=== PATIENT | female | born 1990 | race Caucasian/White ===

== ENCOUNTER 2017-11-09 03:28 | Inpatient (IN) ==
--- OUTSIDE RECORDS SUMMARY | 2017-11-09 06:13 | External Medical Summary | Continuity of Care Document ---
:1990 Author Organization [facility] [employer] [facility] Address [address] [place], [place] [id number] Phone Care Team Providers Name Role Phone Tarun Cotto MD Unavailable Unavailable Allergies, Adverse Reactions, Alerts Substance Reaction Severity Status amoxicillin Unknown Active lactose Unknown Active Medications Medication Instructions Dosage Effective Dates Status Comments (start - stop) iron 325 mg (65 mg take 1 tablet by ORAL 325 MG - Active iron) tablet route every day Benadryl 25 mg take 1 - 2 capsule by 25 MG - Active capsule ORAL route every 4 - 6 hours as needed Tylenol Extra take 2 tablet by oral 1000 MG - Active Strength 500 mg route every 6 hours tablet as needed 28 mg-800 - Active mcg tablet Problems Condition Effective Dates (start - stop) Clinical Status Encounter for suprvsn of normal - , third trimester 32 weeks gestation of - Threatened 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, unsp trimester Supervision of other high risk - pregnancies, second trimester 20 weeks gestation of - Supervision of other high risk - pregnancies, third trimester 30 weeks gestation of - Recurrent loss Complete or unsp spontaneous without complication Supervision of other high risk - pregnancies, first trimester 11 weeks gestation of - Supervision of other high risk - pregnancies, first trimester 12 weeks gestation of - Supervision of other high risk - pregnancies, first trimester Preg care for patient w recurrent preg - loss, first trimester Encntr screen for infections w sexl - mode of transmiss Encounter for screening for oth - infec/parastc diseases Encounter for suprvsn of normal - , first trimester Encounter for screening of - mother 9 weeks gestation of - Supervision of other high risk - pregnancies, second trimester 24 weeks gestation of - Supervision of other high risk - pregnancies, second trimester Preg care for patient w recur preg - loss, second trimester Encounter For Screening For - Malformations 20 weeks gestation of - Supervision of other high risk - pregnancies, second trimester 14 weeks gestation of - Supervision of other high risk - pregnancies, third trimester 28 weeks gestation of - Threatened Preg care for patient w recurrent preg loss, unsp trimester Preg care for patient w recur preg - loss, second trimester 17 weeks gestation of - Decreased movements, third - trimester, unsp 33 weeks gestation of - Encounter for suprvsn of normal - , third trimester 34 weeks gestation of - Procedures Procedure Date OB Visit No Charge Results Test Name Date and Time Measure Units Reference Range Abnormal Flag Comments Unknown Advance Directives Directive Yes / No Effective Date File Name Unknown Encounters Encounter Practice Location Reason(s) Diagnoses Date Provider Care Team Description For Visit Members Matthew Prieto Encounter for Sep- Salvador Referring In Womens suprvsn of normal 4-201 Michael. 700 Provider: Health PA, , third 8 Medical Michael PO Box [id number] weeks Center Salvador R, 1522, gestation of , Sameer 700 [place], 120, Medical [place] [id number], [place], [facility] 120, [place] [id number] Conner, tel: , [place]. CAREN, [id number] tel: [phone]. [id number] tel:[phone] Matthew Prieto Decreased Clyde-0 Salvador Referring In Womens movements, third 8-201 Michael. 700 Provider: Health PA, trimester, unsp33 8 Medical Michael PO Box weeks gestation Center Salvador R, 1522, of Sameer Boyle, 120, Medical [facility] [facility] [id number], [place], Same[place] 120, [place] [id number] [place], tel:+ , [place]. [place], tel: [phone]. [id number] tel:[phone] Matthew Prieto Encounter for August-3 Salvador Referring In Womens suprvsn of normal 1-201 Michael. 700 Provider: Health PA, , third 8 Medical Michael PO Box [id number] weeks Center Salvador R, 1522, gestation of Sameer Boyle, 120, Medical [facility] [id number], [place], Sameer 120, [place] [id number] [place], tel:+ , [place]. [place], tel:[phone]. [id number] tel:[phone] Matthew Prieto Supervision of May-1 Salvador Referring In Womens other high risk 7-201 Michael. 700 Provider: Health PA, pregnancies, 8 Medical Michael PO Box third [email or web address] Center [place] R, 1522, weeks gestation Sameer Boyle, of 120, Medical [facility] [id number], [place], Same[place] 120, [place] [id number] [place], tel:+ , [place]. [place], tel:[phone]. [id number] tel:[phone] Matthew Prieto Supervision of May-0 Salvador Referring In Womens other high risk 3-201 Michael. 700 Provider: Health PA, pregnancies, 8 Medical Michael PO Box third [email or web address] Center Salvador R, 1522, weeks gestation Sameer Boyle, of 120, Medical [place]ner FABIAN, [place] [id number], [place], Sameer 120, [place] [id number] Conner, tel:+[phone] , [place]. [place], tel: [phone]. [id number] tel:[phone] Matthew Prieto Supervision of Apr-0 Salvador Referring In Womens other high risk 5-201 Michael. 700 Provider: Health PA, pregnancies, 8 Medical Michael PO Box second Center Salvador R, 1522, weeks Sameer Boyle, gestation of 120, Medical [place], [place], [place] [id number], [place], Sameer 120, [place] [id number] Conner, tel:+[phone] , [place]. [place], tel: [phone]. [id number] tel:[phone] Matthew Prieto Supervision of Mar-0 Salvador Referring In Womens other high risk 8-201 Michael. 700 Provider: Health PA, pregnancies, 8 Medical Michael PO Box second Center Salvador R, 1522, [id number] weeks Sameer Boyle, gestation of 120, Medical [place], [place], [place] [id number], [place], Sameer 120, [place] [id number] Conner, tel:+2 , [place]. [place], tel: [phone]. [id number] tel:[phone] Matthew Prieto Supervision of Mar-0 Salvador Referring In Womens Ultrasound other high risk 8-201 Michael. 700 Provider: Health PA, pregnancies, 8 Medical Michael PO Box second Center Salvador R, 1522, trimesterPreg Sameer Boyle, care for patient 120, Medical [place], [facility] recur [facility] [id number], loss, second [place], Sameer 120, [place] trimesterEncounte [id number] Conner, tel:[phone] r For , [place]. [place], Screening For tel: [phone]. [id number] tel:+316 weeks gestation [phone] of Associates [place] Preg care for Feb-1 Salvador Referring In Womens patient w recur 5-201 Michael. 700 Provider: Health PA, preg loss, second 8 Medical Michael PO Box [id number] weeks Center Salvador R, 1522, gestation of Sameer Boyle, 120, Medical [place], Prieto, [place] [id number], [place], Sameer 120, [place] [id number] Conner, tel:+[phone] , [place]. [place], tel: [phone]. [id number] tel:[phone] Matthew Prieto Supervision of Oscar-2 Salvador Referring In Womens other high risk 5-201 [place]. 700 Provider: Health PA, pregnancies, 8 Medical Michael PO Box second Center Salvador R, 1522, weeks Sameer Boyle, gestation of 120, Medical [place], [facility] [id number], [place], Sameer 120, [place] [id number] [place], tel: , [place]. [place], tel: [phone]. [id number] tel:[phone] Matthew Prieto Supervision of Oscar-1 Salvador Referring In Womens other high risk 0-201 [place]. 700 Provider: Health PA, pregnancies, 8 Medical Michael PO Box first [id number] Center Salvador R, 1522, weeks gestation Sameer Boyle, of 120, Medical [facility] [id number], [place], Sameer 120, [place] [id number] Conner, tel: , [place]. [place] tel: [phone]. [id number] tel:[phone] Matthew Prieto Supervision of Oscar-0 Salvador Referring In Womens other high risk 4-201 [place]. 700 Provider: Health PA, pregnancies, 8 Medical Michael PO Box first [email or web address] Center Salvador R, 1522, weeks gestation Sameer Boyle, of 120, Medical [facility] [facility] [id number], [place], Sameer 120, [place] [id number] Conner, tel: , [place]. [place], tel: [phone]. [id number] tel:[phone] Matthew Prieto Supervision of Dec-2 Salvador Referring In Womens other high risk 1-201 [place]. 700 Provider: Health PA, pregnancies, 7 Medical Michael PO Box first Center Salvador R, 1522, trimesterPreg Sameer Boyle, care for patient 120, Medical [place], [facility] [id number], loss, first CAREN, Sameer 120, [place] trimesterEncntr [id number] Conner, tel: screen for , [place]. [place], infections w sexl tel: [phone]. mode of [id number] tel: transmissEncounte [phone] r for screening for oth infec/parastc diseasesEncounter for suprvsn of normal , first trimesterEncounte r for screening of mother9 weeks gestation of Associates [place] [facility] care for Dec-0 Salvador Referring In Womens patient w 5-201 Michael. 700 Provider: Jorge WONG, recurrent preg 7 Medical Michael PO Box loss, unsp Center Salvador R, 1522, trimester , Sameer Begum, 120, Medical [facility] [id number], [place], [facility] 120, [place] [id number] [place], tel: , . [place], tel: [phone]. [id number] tel:[phone] Matthew Prieto Recurrent Nov- Raman Referring In Womens 6-201 [place]. Provider: Jorge WONG, lossPreg care for 7 700 Michael PO Box patient w Medical Salvador R, 1522, recurrent preg Center 700 Shy, torie, unsp , [facility], trimester 120, [place] [id number], [place] [address], Conner FABIAN, tel:[phone] [place], , [place]. [id number]. tel: tel: [phone] Matthew Prieto Recurrent Apr-2 Salvador Referring In Womens loss 0-201 Michael. 700 Provider: Jorge WONG, 6 Medical [place] PO Box Center Salvador R, 1522, , Sameer Begum, 120, Medical [place] [facility] [id number], [place], [facility] 120, [place] [id number] [place], tel: , [place]. [place], tel: [phone]. [id number] tel:[phone] Matthew Prieto Complete or unsp Mar-0 Salvador In Womens spontaneous 7-201 Michael. 700 Jorge WONG, without 6 Medical PO Box complication Center 1522, Sameer Boyle, 120, Conner FABIAN, [id number], [place], [place] [id number] tel: , [place]. tel: [phone] Matthew Prieto Threatened Mar-0 Salvador In Womens 3-201 Michael. 700 Health JUDITH, 6 Medical PO Box Center 1522, , Sameer Begum, 120, CAREN, Prieto, [id number], [place], [place] [id number] tel: , [place]. tel: [phone] Associates [facility] Threatened Mar-0 Salvador Referring In Womens 3-201 Michael. 700 Provider: Health PA, 6 Medical Svitlana Priest PO Box Center K, 700 1522, , Sameer Begum, 120, [address] Dr FABIAN, Conner, [facility] 120, [id number], [place], Pri[place], [id number] [place], tel: , [place]. [id number]. tel: tel: [phone] Associates [place] Clyde- Priest In Womens 9-201 Svitlana. Health PA, 5 700 PO Box [facility] 15[address], Center Dr Shy, Sameer FABIAN, 120, [id number], Pri[place], [place], tel: [phone] , [place]. tel: [phone] Family History Family Member Diagnosis Age At Onset No family history of Hypertension No family history of Ovarian Cancer Paternal Grandmother Thyroid Disorder No family history of Osteoporosis No family history of Cardiovascular Disease No family history of Lung Disease No family history of Kidney Disease No family history of Epilepsy No family history of Stroke Paternal Grandmother Diabetes mellitus No family history of Breast Cancer No family history of Colon Cancer Immunizations Vaccine Date Status Comments Unknown Payers Payer name Insurance type Covered democrat ID Authorization(s) [facility] [id number] Social History Type Description Quantity Date Captured Alcohol Use Details No Caffeine Use Details Unknown Tobacco Use Status Unknown Smoking Status Never smoker Vital Signs Date / Height Weight BMI Pulse Blood Temperature Respiratory Body Head BMI Time: Rate Pressure Rate Surface Circumference percentile Area 145.20 24.9 lbs 2 mm[Hg] 11:04 kg/m AM eter (2) Chief Complaint And Reason For Visit Unknown Chief Complaint And Reason For Visit Reason For Referral Reason For Referral Unknown Plan Of Care Date Type Action Status Appointment Tiffanie Lauren BOOKED Future Order: Lab Order Pap Smear With HPV Reflex If ASCUS Ordered ([id number]), Collected on: Future Order: Radiology Order Complete OB Ultrasound > 14 Weeks Ordered ([id number]) Date Type Problem Goal Intervention Status Start Date Unknown. History Of Present Illness Encounter Date Complaint History Of Present Illness This patient has no known history of present illness Functional Status Encounter Date Functional Assessment Cognitive Assessment Unknown Medications Administered Medication Instructions Dosage Effective Dates (start - stop) Status Comments Drug Treatment Unknown Instructions Date Instruction Additional Information HIV and other routine tests risk factors identified by history anticipated course of care nutrition and weight gain counseling, special diet toxoplasmosis precautions (cats / raw meat) sexual activity exercise indications for ultrasound influenza vaccine environmental / work hazards travel use of any medications (including supplements, vitamins, herbs, OTC drugs) domestic violence seat belt use childbirth classes / hospital facilities hospital registration genetic testing new ob handbook
--- OUTSIDE RECORDS SUMMARY | 2017-11-09 06:13 | External Medical Summary | Continuity of Care Document ---
:1990 Author Organization [facility] [employer] [facility] Address [address] [place], [place] [id number] Phone Care Team Providers Name Role Phone [...] third trimester 34 weeks gestation of - Threatened Recurrent loss [...] suprvsn of normal - , third trimester Encounter For Screening For - Streptococcus B 36 weeks gestation of - Encounter for suprvsn of normal - , third trimester 32 weeks gestation of - Procedures Procedure Date OB Visit No Charge Results Test Name Date and Time Measure Units Reference Range Abnormal Flag Comments Unknown Advance Directives Directive Yes / No Effective Date File Name Unknown Encounters Encounter Practice Location Reason(s) Diagnoses Date Provider Care Team Description For Visit Members Matthew Prieto Encounter for Salvador Referring In Womens suprvsn of normal 8-201 Michael. 700 Provider: Health PA, , third 8 Medical Michael [facility] Salvador R, 1522, r For Sameer Boyle 700 [place], Screening For 120, Medical [place], Streptococcus B36 [facility] [id number], weeks gestation [place], Sameer 120, [place] of [id number] [place], tel: , [place]. [place], tel: [phone]. [id number] tel:[phone] Matthew Prieto Encounter for Clyde-1 Salvador Referring In Womens suprvsn of normal 4-201 [place]. 700 Provider: Health JUDITH, , third 8 Medical Michael PO Box [id number] weeks Center Salvador R, 1522, gestation of Sameer Boyle, 120, Medical [facility] [id number], [place], Sameer 120, [place] [id number] Conner, tel: , [place]. [place], tel: [phone]. [id number] tel:[phone] Matthew Prieto Decreased Clyde-0 Salvador Referring In Womens movements, third 8-201 [place]. 700 Provider: Health JUDITH, trimester, unsp33 8 Medical Michael PO Box weeks gestation Center Salvador R, 1522, of Sameer Boyle, 120, Medical [place] [facility] [id number], [place], Sameer 120, [place] [id number] Conner, tel: , [place]. [place], tel: [phone]. [id number] tel:[phone] Matthew Prieto Encounter for May-3 Salvador Referring In Womens suprvsn of normal 1-201 [place]. 700 Provider: Health JUDITH, , third 8 Medical Michael PO Box [id number] weeks Center Salvador R, 1522, gestation of Sameer Boyle, 120, Medical [place] [facility] [id number], [place], Sameer 120, [place] [id number] Conner, tel: , [place]. [place], tel: [phone]. [id number] tel:[phone] Matthew Prieto Supervision of May-1 Salvador Referring In Womens other high risk 7-201 Michael. 700 Provider: Health PA, pregnancies, 8 Medical Michael PO Box third [id number] Center Salvador R, 1522, weeks gestation Sameer Boyle, of 120, Medical Conner FABIAN, [place] [id number], [place], Sameer 120, [place] [id number] Conner, tel: , [place]. [place], tel: [phone]. [id number] tel:[phone] Matthew Prieto Supervision of May-0 Salvador Referring In Womens other high risk 3-201 [place]. 700 Provider: Health PA, pregnancies, 8 Medical Michael PO Box third [email or web address] Center Salvador R, 1522, weeks gestation Sameer Boyle, of 120, Medical CAREN, [facility] [id number], [place], Sameer 120, [place] [id number] Conner, tel: , [place]. [place], tel: [phone]. [id number] tel:[phone] Matthew Prieto Supervision of Apr-0 Salvador Referring In Womens other high risk 5-201 [place]. 700 Provider: Health PA, pregnancies, 8 Medical [facility] Box second Center Salvador R, 1522, [id number] weeks Sameer Boyle, gestation of 120, Medical [place], [facility] [id number], [place], Sameer 120, [place] [id number] Conner, tel: , [place]. [place], tel: [phone]. [id number] tel:[phone] Matthew Prieto Supervision of Mar-0 Salvador Referring In Womens other high risk 8-201 [place]. 700 Provider: Health PA, pregnancies, 8 Medical [facility] Box second Center Salvador R, 1522, [id number] weeks Sameer Boyle, gestation of 120, Medical [place], Conner Carole Boyle [id number], [place], Sameer 120, [place] [id number] Conner, tel: , [place]. [place] tel: [phone]. [id number] tel:[phone] Matthew Prieto Supervision of Mar-0 Salvador Referring In Womens Ultrasound other high risk 8-201 [place]. 700 Provider: Health PA, pregnancies, 8 Medical Michael PO Box second Center Salvador R, 1522, trimesterPreg Sameer Boyle, care for patient 120, Medical [place], w recur preg [address]ole [address] [id number], loss, second [place], Sameer 120, [place] trimesterEncounte [id number] Conner, tel: r For , [place]. [place], Screening For tel: [phone]. [id number] tel: weeks gestation [phone] of Associates [place]ner Preg care for May- Salvador Referring In Womens patient w recur 5-201 Michael. 700 Provider: Health JUDITH, preg loss, second 8 Medical Michael PO Box weeks Center Salvador R, 1522, gestation of Sameer Boyle, 120, Medical [facility] [id number], [place], Sameer 120, [place] [id number] Conner, tel: , [place]. [place] tel: [phone]. [id number] tel:[phone] Matthew Prieto Supervision of Oscar-2 Salvador Referring In Womens other high risk 5-201 Michael. 700 Provider: Health JUDITH, pregnancies, 8 Medical Michael PO Box second Center Salvador R, 1522, [id number] weeks Sameer Boyle, gestation of 120, Medical [place], [facility] [id number], [place], Sameer 120, [place] [id number] [place], tel: , [place]. [place] tel: [phone]. [id number] tel:[phone] Matthew Prieto Supervision of Apr-1 Salvador Referring In Womens other high risk 0-201 Michael. 700 Provider: Health PA, pregnancies, 8 Medical Michael PO Box first [id number] Center Salvador R, 1522, weeks gestation Sameer Boyle, of 120, Medical [place] [facility] [id number], [place], Sameer 120, [place] [id number] Conner, tel: , [place]. [place] tel: [phone]. [id number] tel:[phone] Matthew Prieto Supervision of Oscar-0 Salvador Referring In Womens other high risk 4-201 Michael. 700 Provider: Health PA, pregnancies, 8 Medical Michael PO Box first [id number] Center Salvador R, 1522, weeks gestation Sameer oByle, of 120, Medical [place]ner [facility] [id number], [place], Sameer 120, [place] [id number] Conner, tel: , [place]. [place], tel: [phone]. [id number] tel:[phone] Matthwe Prieto Supervision of Dec-2 Salvador Referring In Womens other high risk 1-201 [place]. 700 Provider: Jorge WONG, pregnancies, 7 Medical Michael Box first Center Salvador R, 1522, trimesterPreg , Sameer 700 [place], care for patient 120, Medical [place], w recurrent preg Conner, [place] [id number], loss, first [place], Sameer 120, [place] trimesterEncntr [id number] Conner, tel: screen for , [place]. [place], infections w sexl tel:[phone]. mode of [id number] tel: transmissEncounte [id number] r for screening for oth infec/parastc diseasesEncounter for suprvsn of normal , first trimesterEncounte r for screening of mother9 weeks gestation of [facility] [facility] care for Dec-0 Salvador Referring In Womens patient w 5-201 Michael. 700 Provider: Jorge WONG, recurrent preg 7 Medical [facility] Box loss, unsp Center Salvador R, 1522, trimester , Sameer 700 [place], 120, Medical [place], [facility] [id number], [place], Sameer 120, [place] [id number] Conner, tel: , [place]. [place], tel: [phone]. [id number] tel:[phone] Matthew Prieto Recurrent Nov-1 Raman Referring In Womens 6-201 [place]. Provider: Jorge WONG, lossPreg care for 7 700 Michael Box patient w Medical Salvador R, 1522, recurrent preg Center 700 [place], torie, unsp , [facility], trimester 120, Center [id number], Conner, [facility] 120, [place] Conner FABIAN, tel:[phone] [place], , [place]. [id number]. tel: tel: [phone] Matthew Prieto Recurrent Apr-2 Salvador Referring In Womens loss 0-201 Michael. 700 Provider: Jorge WONG, 6 Medical [facility] Box Center Salvador R, 1522, , Sameer 700 [place], 120, Medical Conner FABIAN, [place] [id number], [place], [place] [address], [id number] Conner, tel: , . [place], tel: [phone]. [id number] tel:[phone] Associates [facility] Complete or unsp Mar-0 Salvador In Womens spontaneous 7-201 [place]. 700 Health [place], without 6 Medical PO Box complication Center 1522, , [facility] Shy, [facility], CAREN, Conner, [id number], [place], [id number] tel: , [place]. tel: [phone] Matthew Prieto Threatened Mar-0 Salvador In Womens 3-201 [place]. 700 Health PA, 6 Medical PO Box Center 1522, , [facility] Shy, [facility], CAREN, Conner, [id number], [place], [place] [id number] tel: , [place]. tel: [phone] Matthew Prieto Threatened Mar-0 Salvador Referring In Womens 3-201 [place]. 700 Provider: Health [place], 6 Medical Svitlana Priest PO Box Center K, 700 152, , [facility] Shy, 120, [place]ner [place], [place] [address], [id number], [place], [place], [id number] [place], tel: , [place]. [id number]. tel: tel: [phone] Matthew Prieto Sep- Priest In Womens 9-201 [place]. Health [place], 5 700 PO Box Medical [facility], [address] Shy, [facility], 120, [id number], Prieto, CAREN, tel: [phone] , [place]. tel: [phone] Family History Family Member Diagnosis Age At [...] Colon Cancer Immunizations Vaccine Date Status Comments Tdap completed Source: New Immunization Record Payers Payer name Insurance type Covered libertarian ID Authorization(s) [facility] [id number] [facility] [id number] Social History Type Description Quantity Date Captured Alcohol Use Details No Caffeine Use Details Unknown Tobacco Use Status Unknown Smoking Status Never smoker Vital Signs Date / Height Weight BMI Pulse Blood Temperature Respiratory Body Head BMI Time: Rate Pressure Rate Surface Circumference percentile Area 149.00 25.5 122/ lbs 7 mm[Hg] 10:28 kg/m AM eter (2) Chief Complaint And Reason For Visit Unknown Chief Complaint And Reason For Visit Reason For Referral Reason For Referral Unknown Plan Of Care Date Type Action Status Appointment Tiffanie Lauren BOOKED Future Order: Lab Order Pap Smear With HPV Reflex If ASCUS Ordered (WPMPap1), Collected on: Future Order: Radiology Order Complete OB Ultrasound > 14 Weeks Ordered ([id number]) Date Type Problem Goal Intervention Status Start [...]
--- OUTSIDE RECORDS SUMMARY | 2017-11-09 06:13 | External Medical Summary | Continuity of Care Document ---
:1990 Author Organization [facility] Address [address] [place], [place] [id number] Phone Care Team Providers Name Role Phone [...] Effective Dates (start - stop) Clinical Status Threatened Recurrent loss Preg care for patient [...] - Decreased movements, third - trimester, unsp 38 weeks gestation of - Decreased movements, third - trimester, unsp 33 weeks gestation of - Encounter for suprvsn of normal - , third trimester Encounter For Screening For - Streptococcus B 36 weeks gestation of - Encounter for suprvsn of normal - , third trimester 37 weeks gestation of - Encounter for suprvsn of normal - , third trimester 34 weeks gestation of - Encounter for suprvsn of normal - , third trimester 32 weeks gestation of - Procedures Procedure Date Unknown Results Test Name Date and Time Measure Units Reference Range Abnormal Flag Comments Unknown Advance Directives Directive Yes / No Effective Date File Name Unknown Encounters Encounter Practice Location Reason(s) Diagnoses Date Provider Care Team Description For Visit Members [facility] Prieto Decreased Oct- Salvador Referring In Womens movements, third 2-201 Michael. 700 Provider: Jorge PA, trimester, [id number] 8 Medical Michael PO Box weeks gestation Center Salvador R, 1522, of Sameer Boyle, 120, Medical [facility] [id number], [place], [place] 120, [place] [id number] [place], tel:+ , [place]. [place], tel: [phone]. [id number] tel:[phone] Matthew Prieto Encounter for Larry-0 Salvador Referring In Womens suprvsn of normal 5-201 Michael. 700 Provider: Health JUDITH, , third 8 Medical [place] PO Box [id number] weeks Center Salvador R, 1522, gestation of Sameer Boyle, 120, Medical [facility] [id number], [place], Sameer 120, [place] [id number] [place], tel:+ , [place]. [place], tel: [phone]. [id number] tel:[phone] Matthew Prieto Encounter for Clyde-2 Salvador Referring In Womens suprvsn of normal 8-201 Michael. 700 Provider: Health JUDITH, , third 8 Medical [facility] Box trimesterEncounte Center Salvador R, 1522, r For Same[place] Boyle, Screening For 120, Medical [place], St[facility] B36 [facility] [id number], weeks gestation [place], Sameer 120, [place] of [id number] [place], tel:+ , [place]. [place], tel: [phone]. [id number] tel:[phone] Matthew Prieto Clyde-2 Salvador Referring In Womens 5-201 Michael. 700 Provider: Health JUDITH, 8 Medical [facility] Box [place] R, 1522, Sameer Boyle, 120, Medical [place] [facility] [id number], [place], Sameer 120, [place] [id number] [place], tel:+ , [place]. [place], tel: [phone]. [id number] tel:[phone] Matthew Prieto Encounter for Clyde-1 Salvador Referring In Womens suprvsn of normal 4-201 Michael. 700 Provider: Health JUDITH, , third 8 Medical [facility] Box [id number] weeks Center Salvador R, 1522, gestation of Sameer Boyle, 120, Medical [facility] [id number], [place], Sameer 120, [place] [id number] [place], tel: , [place]. [place], tel: [phone]. [id number] tel:[phone] Matthew Prieto Decreased Clyde-0 Salvador Referring In Womens movements, third 8-201 Michael. 700 Provider: Health PA, trimester, [id number] 8 Medical Michael PO Box weeks gestation Center Salvador R, 1522, of Sameer Boyle, 120, Medical [place] [id number], [place], Sameer 120, [place] [id number] [place], tel: , [place]. [place], tel: [phone]. [id number] tel:[phone] Matthew Prieto Encounter for May-3 Salvador Referring In Womens suprvsn of normal 1-201 Michael. 700 Provider: Health JUDITH, , third 8 Medical Michael PO Box [id number] weeks Center [place] R, 1522, gestation of Sameer Boyle, 120, Medical [facility] [id number], [place], [facility] 120, [place] [id number] [place], tel: , [place]. [place], tel: [phone]. [id number] tel:[phone] Matthew Prieto Supervision of May-1 Salvador Referring In Womens other high risk 7-201 Michael. 700 Provider: Health PA, pregnancies, 8 Medical Michael PO Box third Center Salvador R, 1522, weeks gestation Sameer Boyle, of 120, Medical [place] [facility] [id number], [place], [facility] 120, [place] [id number] [place], tel: , [place]. [place], tel: [phone]. [id number] tel:[phone] Matthew Prieto Supervision of May-0 Salvador Referring In Womens other high risk 3-201 Michael. 700 Provider: Health PA, pregnancies, 8 Medical [place] PO Box third [id number] Center [place] R, 1522, weeks gestation Sameer Boyle, of 120, Medical [place] [id number], [place], Sameer 120, [place] [id number] [place], tel: , [place]. [place], tel: [phone]. [id number] tel:[phone] Matthew Prieto Supervision of Apr-0 Salvador Referring In Womens other high risk 5-201 Michael. 700 Provider: Health PA, pregnancies, 8 Medical [place] PO Box second Center Salvador R, 1522, [id number] weeks Same[place] Boyle, gestation of 120, Medical [place], [facility] [id number], [place], Same[place] 120, [place] [id number] [place], tel: , [place]. [place], tel: [phone]. [id number] tel:[phone] Matthew Prieto Supervision of Mar-0 Salvador Referring In Womens other high risk 8-201 Michael. 700 Provider: Health PA, pregnancies, 8 Medical Michael PO Box second Center Salvador R, 1522, [id number] weeks Same[place] Boyle, gestation of 120, Medical [place], [facility] [id number], [place], Sameer 120, [place] [id number] [place], tel: , [place]. [place] tel: [phone]. [id number] tel:[phone] Matthew Prieto Supervision of Mar-0 Salvador Referring In Womens Ultrasound other high risk 8-201 Michael. 700 Provider: Health PA, pregnancies, 8 Medical Michael PO Box second Center Salvador R, 1522, trimesterPreg [place] Boyle, care for patient 120, Medical [place], w recur [facility] [id number], loss, second [place], Same[place] 120, [place] trimesterEncounte [id number] [place], tel: r For , [place]. [place] Screening For tel: [phone]. [id number] tel:316 weeks gestation [phone] of Associates [place] Preg care for Feb-1 Salvador Referring In Womens patient w recur 5-201 Michael. 700 Provider: Health PA, preg loss, second 8 Medical Michael PO Box [id number] weeks Center Salvador R, 1522, gestation of Smaeer Boyle, 120, Medical [place] [facility] [id number], [place], Sameer 120, [place] [id number] [place], tel: , [place]. [place], tel: [phone]. [id number] tel:[phone] Matthew Prieto Supervision of Oscar-2 Salvador Referring In Womens other high risk 5-201 Michael. 700 Provider: Health PA, pregnancies, 8 Medical Michael PO Box second Center Salvador R, 1522, [id number] weeks [place] Boyle, gestation of 120, Medical [place], [facility] [id number], [place], Same[place] 120, [place] [id number] [place], tel: , [place]. [place], tel: [phone]. [id number] tel:[phone] Matthew Prieto Supervision of Oscar-1 Salvador Referring In Womens other high risk 0-201 Michael. 700 Provider: Health PA, pregnancies, 8 Medical Michael PO Box first [id number] Center [place] R, 1522, weeks gestation Sameer Boyle, of 120, Medical [place] [facility] [id number], [place], Sameer 120, [place] [id number] [place], tel: , [place]. [place], tel: [phone]. [id number] tel:[phone] Matthew Prieto Supervision of Oscar-0 Salvador Referring In Womens other high risk 4-201 Michael. 700 Provider: Health PA, pregnancies, 8 Medical Michael PO Box first [id number] Center Salvador R, 1522, weeks gestation Sameer Boyle, of 120, Medical [place] [facility] [id number], [place], Same[place] 120, [place] [id number] [place], tel: , [place]. [place], tel: [phone]. [id number] tel:[phone] Matthew Prieto Supervision of Dec-2 Salvador Referring In Womens other high risk 1-201 Michael. 700 Provider: Health PA, pregnancies, 7 Medical Michael PO Box first Center Salvador R, 1522, trimesterPreg [place] Boyle, care for patient 120, Medical CAREN, w recurrent [facility] [id number], loss, first [place], [facility] 120, [place] trimesterEncntr [id number] [place], tel: screen for , [place]. [place], infections w sexl tel: [phone]. mode of [id number] tel: transmissEncounte [phone] r for screening for oth infec/parastc diseasesEncounter for suprvsn of normal , first trimesterEncounte r for screening of mother9 weeks gestation of Associates [place] Preg care for Dec-0 Salvador Referring In Womens patient w 5-201 Michael. 700 Provider: Health JUDITH, recurrent preg 7 Medical Michael PO Box loss, unsp Center Salvador R, 1522, trimester , Sameer Pablito Begum, 120, Medical [place] [facility] [id number], [place], [facility] 120, [place] [id number] [place], tel: , . [place], tel: [phone]. [id number] tel:[phone] Matthew Prieto Recurrent Nov-1 Raman Referring In Womens 6-201 [place]. Provider: Jorge WONG, lossPreg care for 7 700 Michael PO Box patient w Medical Salvador R, 1522, recurrent preg Center torie You, unsp , [facility], trimester 120, [place] [id number], Prieto, [facility] 120, [place] FABIAN, tel: [phone] [place], , [place]. [id number]. tel: tel: [phone] Matthew Prieto Recurrent Apr-2 Salvador Referring In Womens loss 0-201 Michael. 700 Provider: Jorge WONG, 6 Medical Michael PO Box Center Salvador R, 1522, Sameer Boyle, 120, Medical [place] [facility] [id number], [place], [facility] 120, [place] [id number] [place], tel: , . [place], tel: [phone]. [id number] tel:[phone] Matthew Prieto Complete or unsp Mar-0 Salvador In Womens spontaneous 7-201 Michael. 700 Health JUDITH, without 6 Medical PO Box complication Center 1522, Sameer Boyle 120, [place], [place], [id number], [place], [place] [id number] tel: , [place]. tel: [phone] Matthew Prieto Threatened Mar-0 Salvador In Womens 3-201 [place]. 700 Health PA, 6 Medical PO Box Center 1522, , Sameer Begum, 120, CAREN, [place], [id number], [place], [place] [id number] tel: , [place]. tel: [phone] Matthew Prieto Threatened Mar-0 Salvador Referring In Womens 3-201 [place]. 700 Provider: Health PA, 6 Medical Svitlana Priest PO Box Center K, 700 1522, , Sameer Wilbert Begum, 120, [place] [address] FABIAN, [place], [facility] 120, , [place], [place], [id number] [place], tel: , . [id number]. tel: tel: [phone] Matthew Prieto Clyde- Priest In Womens 9-201 Svitlana. Health PA, 5 700 PO Box Medical 1522, [address], [facility] CAREN, 120, [id number], Prieto, CAREN, tel: [phone] , [place]. tel: [phone] Family History Family Member Diagnosis Age At [...] Record Payers Payer name Insurance type Covered green party ID Authorization(s) [facility] [id number] [facility] [id number] Social History Type Description Quantity Date Captured Alcohol Use Details No Caffeine Use Details Unknown Tobacco Use Status Unknown Smoking Status Never smoker Vital Signs Date / Height Weight BMI Pulse Blood Temperature Respiratory Body Head BMI Time: Rate Pressure Rate Surface Circumference percentile Area 25.5 124/73 7 mm[Hg] 8:19 kg/m AM eter (2) 7 8:19 kg/m AM eter (2) Chief Complaint And Reason For Visit Unknown Chief Complaint And Reason For Visit Reason For Referral Reason For Referral Unknown Plan Of Care Date Type Action Status Future Order: Lab Order Pap Smear With HPV Reflex If ASCUS Ordered ([id number]), Collected on: Future Order: Radiology Order Complete OB Ultrasound > 14 Weeks Ordered ([id number]) Date Type Problem Goal Intervention Status Start [...]
--- OUTSIDE RECORDS SUMMARY | 2017-11-09 06:13 | External Medical Summary | Continuity of Care Document ---
:1990 Author Organization [facility] Address [address] [place], [place] [id number] Phone Care Team Providers Name Role Phone Tarun Cotto MD Unavailable Unavailable Allergies, Adverse Reactions, Alerts Substance Reaction Severity Status amoxicillin Unknown Active lactose Unknown Active Medications Medication Instructions Dosage Effective Dates Status Comments (start - stop) Benadryl 25 mg take 1 - 2 capsule by 25 MG - Active capsule ORAL route every 4 - 6 hours as needed Tylenol Extra take 2 tablet by oral 1000 MG - Active Strength 500 mg route every 6 hours tablet as needed 28 mg-800 - Active mcg tablet Problems Condition Effective Dates (start - stop) Clinical Status Supervision of other high risk - pregnancies, second trimester Preg care for patient w recur preg - loss, second trimester Encounter For Screening For - Malformations 20 weeks gestation of - Threatened 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, unsp trimester Supervision of other high risk - pregnancies, second trimester 20 weeks gestation of - Recurrent loss Complete [...] second trimester 14 weeks gestation of - Threatened Preg care for patient w recurrent preg loss, unsp trimester Preg care for patient w recur preg - loss, second trimester 17 weeks gestation of - Procedures Procedure Date Ultrasound exam of preg uterus, complete Results Test Name Date and Time Measure Units Reference Range Abnormal Flag Comments Unknown Advance Directives Directive Yes / No Effective Date File Name Unknown Encounters Encounter Practice Location Reason(s) Diagnoses Date Provider Care Team Description For Visit Members Matthew Prieto Supervision of Jun-0 Salvador Referring In Womens other high risk 8-201 Michael. 700 Provider: Health JUDITH, pregnancies, 8 Medical Michael PO Box second [place] Salvador R, 1522, weeks Dr Sameer 700 [place], gestation of 120, Medical [place], [facility] [id number], [place], [facility] [place] 120, [place] [id number] [place], tel: , [place]. [place], tel: [phone]. [id number] tel:[phone] Matthew Prieto Supervision of Jun-0 Salvador Referring In Womens Ultrasound other high risk 8-201 Michael. 700 Provider: Health PA, pregnancies, 8 Medical Michael PO Box second [place] Salvador R, 1522, trimesterPreg [place]er Boyle 700 [place], care for patient 120, Medical [place], w recur preg [facility] [id number], loss, second [place], [facility] [place] 120, [place] trimesterEncounte [id number] [place], tel: r For , [place]. [place], Screening For tel: [phone]. [id number] tel:316 weeks gestation [id number] of Associates [place] Preg care for May-1 Salvador Referring In Womens patient w recur 5-201 Michael. 700 Provider: Health JUDITH, preg loss, second 8 Medical Michael PO Box [id number] weeks Center Salvador R, 1522, gestation of Sameer Boyle, 120, Medical [place] [facility] [id number], [place], Same[place] 120, [place] [id number] [place], tel: , [place]. [place], tel: [phone]. [id number] tel:[phone] Matthew Prieto Supervision of Oscar-2 Salvador Referring In Womens other high risk 5-201 Michael. 700 Provider: Health PA, pregnancies, 8 Medical Michael PO Box second Center Salvador R, 1522, [id number] weeks Sameer Boyle, gestation of 120, Medical [place], [facility] [place], [place] [id number], [place], Sameer 120, [place] [id number] [place], tel: , [place]. [place], tel: [phone]. [id number] tel:[phone] Matthew Prieto Supervision of Oscar-1 Salvador Referring In Womens other high risk 0-201 Michael. 700 Provider: Health PA, pregnancies, 8 Medical Michael PO Box first [id number] Center Salvador R, 1522, weeks gestation Sameer Boyle, of 120, Medical [place] [facility] [id number], [place], Same[place] 120, [place] [id number] [place], tel: , [place]. [place], tel: [phone]. [id number] tel:[phone] Matthew Prieto Supervision of Oscar-0 Salvador Referring In Womens other high risk 4-201 Michael. 700 Provider: Health PA, pregnancies, 8 Medical Michael PO Box first [id number] Center Salvador R, 1522, weeks gestation Sameer Boyle, of 120, Medical [place] [facility] [id number], [place], Same[place] 120, [place] [id number] [place], tel: , . [place], tel: [phone]. [id number] tel:[phone] Matthew Prieto Supervision of Dec-2 Salvador Referring In Womens other high risk 1-201 Michael. 700 Provider: Health PA, pregnancies, 7 Medical Michael PO Box first Center Salvador R, 1522, trimesterPreg [place]er Boyle, care for patient 120, Medical [place], w recurrent preg [place], [place] [id number], loss, first [place], [facility] [place] 120, [place] trimesterEncntr [id number] [place], tel: screen for , [place]. [place], infections w sexl tel:[phone]. mode of [id number] tel: transmissEncounte [phone] r for screening for oth infec/parastc diseasesEncounter for suprvsn of normal , first trimesterEncounte r for screening of mother9 weeks gestation of [facility] [place] care for Dec-0 Salvador Referring In Womens patient w 5-201 Michael. 700 Provider: Jorge WONG, recurrent preg 7 Medical Michael PO Box loss, unsp Center Salvador Danielson, 1522, trimester , [place] [address] Shy, 120, Medical [place] [facility] [id number], [place], [facility] [place] 120, [place] [id number] [place], tel: , . [place], tel:[phone]. [id number] tel:[phone] Matthew Prieto Recurrent Nov-1 Raman Referring In Womens 6-201 [place]. Provider: Jorge WONG, lossPreg care for 7 700 Michael PO Box patient w Medical Salvador R, 1522, recurrent preg Center torie You, unsp , [facility], trimester 120, [place] [id number], [facility] 120, [place] FABIAN, tel:[phone] [place], , [place]. [id number]. tel: tel: [phone] Matthew Prieto Recurrent Apr-2 Salvador Referring In Womens loss 0-201 Michael. 700 Provider: Jorge WONG, 6 Medical Michael PO Box Center Salvador Danielson, 1522, , [place] [address] Shy, 120, Medical [place] [facility] [id number], [place], [facility] [place] 120, [place] [id number] [place], tel: , [place]. [place] tel: [phone]. [id number] tel:[phone] Matthew Prieto Complete or unsp Mar-0 Salvador In Womens spontaneous 7-201 Michael. 700 Health PA, without 6 Medical PO Box complication Center 1522, , Sameer Begum, 120, [place], [place], [id number], [place], [id number] tel: , . tel: [phone] Matthew Prieto Threatened Mar-0 Salvador In Womens 3-201 [place]. 700 Health PA, 6 Medical PO Box Center 1522, , Sameer Begum, 120, CAREN, [place], , [place], [id number] tel: , . tel: [phone] Matthew Prieto Threatened Mar-0 Salvador Referring In Womens 3-201 [place]. 700 Provider: Health PA, 6 Medical Svitlana Priest PO Box Center K, 700 1522, , Sameer Begum, 120, [address] Dr FABIAN, [place], [facility] [place] 120, , [place], [place], [id number] [place], tel: , . [id number]. tel: tel: [phone] Matthew Prieto Clyde- Priest In Womens 9-201 Svitlana. Health PA, 5 700 PO Box Medical 1522, [address], [facility], 120, [id number], [place], [place], tel: [phone] , [place]. tel: [phone] Family History Family Member Diagnosis Age At [...] name Insurance type Covered democrat ID Authorization(s) ANGEL MUNROE [id number] Social History Type Description Quantity Date Captured Unknown Vital Signs Date / Height Weight BMI Pulse Blood Temperature Respiratory Body Head BMI Time: Rate Pressure Rate Surface Circumference percentile Area Unknown Chief Complaint And Reason For Visit Unknown Chief Complaint And Reason For Visit Reason For Referral Reason For Referral Unknown Plan Of Care Date Type Action Status Appointment Tiffanie Lauren BOOKED Future Order: Radiology Order Complete OB Ultrasound > 14 Weeks Ordered ([id number]) Future Order: Lab Order Pap Smear With HPV Reflex If ASCUS Ordered ([id number]), Collected on: Date Type Problem Goal Intervention Status Start [...]
--- OUTSIDE RECORDS SUMMARY | 2017-11-09 06:13 | External Medical Summary | Continuity of Care Document ---
:1990 Author Organization [facility] Address [address] [place], [place] [address] Phone Care Team Providers Name Role Phone Tarun Cotto MD Unavailable Unavailable Allergies, Adverse Reactions, Alerts Substance Reaction Severity Status amoxicillin Unknown Active lactose Unknown Active Medications Medication Instructions Dosage Effective Dates Status Comments (start - stop) Prometrium 200 mg take 1 by Vaginal - Active capsule route bid Tylenol Extra take 2 tablet by oral 1000 MG - Active Strength 500 mg route every 6 hours tablet as needed 28 mg-800 - Active mcg tablet Problems Condition Effective Dates (start - stop) Clinical Status Preg care for patient w recurrent preg loss, unsp trimester Threatened 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, unsp trimester Recurrent loss Complete or unsp spontaneous without complication Supervision of other high risk - pregnancies, first trimester Preg care for patient w recurrent preg - loss, first trimester Encounter for suprvsn of normal - , first trimester 9 weeks gestation of - Threatened Procedures Procedure Date No Charge Office Visit Results Test Name Date and Time Measure Units Reference Range Abnormal Flag Comments Unknown Advance Directives Directive Yes / No Effective Date File Name Unknown Encounters Encounter Practice Location Reason(s) Diagnoses Date Provider Care Team Description For Visit Members Matthew Prieto Supervision of Salvador Referring In [facility] other high risk 1-201 Michael. 700 Provider: Health PA, pregnancies, first 7 Medical [facility] Box trimesterPreg care Center Salvador Danielson 1522, for patient w Sameer Boyle 700 [place], recurrent preg 120, Medical [place], loss, [facility] [id number] [place], [facility] 120, [place] for suprvsn of [id number] Conner, tel: normal , , [place]. [place], first trimester9 tel:[phone]. weeks gestation of [id number] tel: [phone] Associates [facility]ner Preg care for Dec-0 Salvador Referring In Womens patient w recurrent 5-201 Michael. 700 Provider: Jorge WONG, preg loss, unsp 7 Medical Michael PO Box trimester Center Salvador R, 1522, , Sameer Pablito Begum, 120, Medical [facility]ner [facility] [id number], [place], [facility] 120, [place] [id number] Conner, tel: , [place]. [place], tel:[phone]. [id number] tel:[phone] Associates Conner Recurrent Nov- Raman Referring In Womens lossPreg care for 6-201 [place]. Provider: Jorge WONG, patient w recurrent 7 700 Michael PO Box preg loss, unsp Medical Salvador R, 1522, trimester Center [address] Dr Shy, [facility], 120, [place] [id number], [facility] 120, Conner FABIAN, tel:[phone] [place], , [place]. [id number]. tel: tel: [phone] Associates Conner Recurrent Apr-2 Salvador Referring In Womens loss 0-201 Michael. 700 Provider: Jorge WONG, 6 Medical Michael PO Box Center Salvador R, 1522, , [facility] [place], 120, Medical [place]ner [facility] [id number], [place], [facility] 120, [place] [id number] Conner, tel: , . [place], tel:[phone]. [id number] tel:[phone] Associates Conner Complete or unsp Mar-0 Salvador In Womens spontaneous 7-201 Michael. 700 Jorge WONG, without 6 Medical PO Box complication Center 1522, , Sameer Shy, 120, Conner FABIAN, [id number], [place], [place] [id number] tel: , [place]. tel: [phone] Associates [facility]ner Threatened Mar-0 Salvador In Womens 3-201 [place]. 700 Health JUDITH, 6 Medical PO Box Center 1522, , Sameer Begum, 120, CAR[place], Conner, [id number], [place], [id number] tel: , [place]. tel: [phone] Associates [facility]ner Threatened Mar-0 Salvador Referring In Womens 3-201 [place]. 700 Provider: Jorge WONG, 6 Medical Svitlana Priest PO Box Center K, 700 1522, , [facility] Wilbert Begum, 120, Center Dr FABIAN, [place], [facility] 120, , [place], [place], [id number] [place], tel: , . [id number]. tel: tel: [phone] Associates Conner Clyde-1 Priest In Womens 9-201 Svitlana. Jorge WONG, 5 700 PO Box [facility] 1522, [place] Dr Shy, [facility] CAREN, 120, [id number], [place], [place], tel: [phone] , [place]. tel: [phone] Family History Family Member Diagnosis Age At [...] name Insurance type Covered democrat ID Authorization(s) [facility] [id number] Social History Type Description Quantity Date Captured Alcohol Use Details No Caffeine Use Details No Tobacco Use Status Never smoked tobacco Smoking Status Never smoker Non-Smoking Tobacco Use : No Details Available : No Details Available Details Vital Signs Date / Height Weight BMI Pulse Blood Temperature Respiratory Body Head BMI Time: Rate Pressure Rate Surface Circumference percentile Area 112.60 75 122/75 -2017 lbs /min mm[Hg] 3:18 PM Chief Complaint And Reason For Visit Unknown [...]
--- OUTSIDE RECORDS SUMMARY | 2017-11-09 06:14 | External Medical Summary | Continuity of Care Document ---
:1990 Author Organization [facility] Address [address] [place], [place] [address] Phone Care Team Providers Name Role Phone Tarun Cotto MD Unavailable Unavailable Allergies, Adverse Reactions, Alerts Substance Reaction Severity Status amoxicillin Unknown Active lactose Unknown Active Medications Medication Instructions Dosage Effective Dates Status Comments (start - stop) promethazine 25 mg take 1 tablet by oral 25 MG - Active tablet route every day at bedtime Tylenol Extra Strength take 2 tablet by oral 1000 MG - Active 500 mg tablet route every 6 hours as needed 28 mg-800 mcg - Active tablet Problems Condition Effective Dates (start - stop) Clinical Status Encounter for suprvsn of normal - , first trimester Encounter for screening for oth - infec/parastc diseases Encounter for screening of - mother Encntr screen for infections w sexl - mode of transmiss Supervision of other high risk - pregnancies, first trimester Preg care for patient w recurrent preg - loss, first trimester 9 weeks gestation of - Threatened 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, unsp trimester Supervision of other high risk - pregnancies, first trimester 12 weeks gestation of - Recurrent loss Complete or unsp spontaneous without complication Supervision of other high risk - pregnancies, first trimester 11 weeks gestation of - Threatened Preg care for patient w recurrent preg loss, unsp trimester Procedures Procedure Date Initial OB Visit No Charge - ELEMENTARY PRINCIPAL OB Prepayment Agreement Urine Culture OB Panel With An HIV Venpnctr fngr/heel/ear stick routne Infct antign, chlamydia trac, ampl Neisseria Gonorrhoeae, Amplification Cult, bactr, ident isolate, urine Results Test Name Date and Time Measure Units Reference Range Abnormal Flag Comments Panel Description: OBSTETRIC PANEL WHITE BLOOD CELL 10.4 Thousand/uL 3.8-10.8 N COUNT 11:47:00 RED BLOOD CELL 4.19 Million/uL 3.80-5.10 N COUNT 11:47:00 HEMOGLOBIN 12.8 g/dL 11.7-15.5 N 11:47:00 HEMATOCRIT 39.0 % 35.0-45.0 N 11:47:00 MCV 93.1 fL 80.0-100.0 N 11:47:00 MCH 30.5 pg 27.0-33.0 N 11:47:00 MCHC 32.8 g/dL 32.0-36.0 N 11:47:00 RDW 11.8 % 11.0-15.0 N 11:47:00 PLATELET COUNT 196 Thousand/uL 140-400 N 11:47:00 MPV 13.7 fL 7.5-12.5 H 11:47:00 ABSOLUTE 7821 cells/uL 2440-2549 H NEUTROPHILS 11:47:00 ABSOLUTE 1810 cells/uL 850-3900 N LYMPHOCYTES 11:47:00 ABSOLUTE 676 cells/uL 200-950 N MONOCYTES 11:47:00 ABSOLUTE 62 cells/uL 15-500 N EOSINOPHILS 11:47:00 ABSOLUTE 31 cells/uL 0-200 N BASOPHILS 11:47:00 NEUTROPHILS 75.2 % N 11:47:00 LYMPHOCYTES 17.4 % N 11:47:00 MONOCYTES 6.5 % N 11:47:00 EOSINOPHILS 0.6 % N 11:47:00 BASOPHILS 0.3 % N 11:47:00 ANTIBODY SCREEN, NO ANTIBODIES N RBC W/REFL ID, 11:47:00 DETECTED Reference range TITER AND AG No antibodies detected This assay is a screening test for the detection of red blood cell antibodies. The test is not to be used for pretransfusion screening or for the medical management of an alloimmunized . ABO GROUP A 11:47:00 RH TYPE RH(D) 11:47:00 POSITIVE RPR (DX) W/REFL NON-REACTIVE NON-REACTIV N TITER AND 11:47:00 E CONFIRMATORY TESTING HEPATITIS B NON-REACTIVE NON-REACTIV N SURFACE ANTIGEN 11:47:00 E RUBELLA ANTIBODY 4.62 index N Index (IGG) 11:47:00 Interpretation ----- <0.90 Not consistent with Immunity 0.90-0.99 Equivocal > or=1.00 Consistent with Immunity The presence of rubella IgG antibody suggests immunization or past or current infection withrubella virus.Test performed at [facility] [id number] [place] [address]Jzyuyki r: SUKHI GONZALEZ DO,MPH Panel Description: HIV 1/2 ANTIGEN/ANTIBODY,FOURTH GENERATION W/RFL HIV NON-REACTIVE NON-REACTIVE N HIV-1 antigen and HIV-1/HIV- 2 antibodies were AG/AB, 11:47:00 notdetected. There is no laboratory evidence of 4TH GEN HIVinfection. PLEASE NOTE: This information has been disclosed toyou from records whose confidentiality may beprotected by state law. If your state requires suchprotection, then the state law prohibits you frommaking any further disclosure of the informationwithout the specific written consent of the personto whom it pertains, or as otherwise permitted by law.A general authorization for the release of medical orother information is NOT sufficient for this purpose. For additional information please refer tohttp://education.[employer]faq/NYK661(This link is being provided for informational/educational purposes only.) The performance of this assay has not been clinicallyvalidated in patients less than 2 years old. REPORT COMMENT:FASTING:NOTest performed at [facility] [employer] [address] [address]Zdodnqlo: SUKHI GONZALEZ DO,MPH Panel Description: Bacteria identified in Urine by Culture CULTURE, URINE, 11:57:00 SEE NOTE CULTURE, URINE, ROUTINE ROUTINE MICRO NUMBER: [id number] TEST STATUS: FINAL SPECIMEN SOURCE: URINE SPECIMEN QUALITY: ADEQUATE RESULT: Single organism less than 10,000 CFU/mL isolated. These organisms, commonly found on external and internal genitalia, are considered colonizers. No further testing performed.REPORT COMMENT:RFASTING:UNKNOWNTest performed at [facility] [employer] [address] [address]Jtiejtxv: SUKHI GONZALEZ DO,MPH Panel Description: CHLAMYDIA/N. GONORRHOEAE RNA, TMA CHLAMYDIA NOT DETECTED NOT DETECTED N TRACHOMATIS RNA, 11:56:00 TMA NEISSERIA NOT DETECTED NOT DETECTED N GONORRHOEAE RNA, 11:56:00 TMA [id number] SEE NOTE This test was 11:56:00 performed using the APTIMA COMBO2 Assay([employer] The analytical performance characteristics of this assay, when used to test SurePath specimens havebeen determined by [employer]. REPORT COMMENT:FASTING:UNKNO WNTest performed at [facility] [employer] [address] [address]Ansefqql: SUKHI GONZALEZ DO,MPH Advance Directives Directive Yes / No Effective Date File Name Unknown Encounters Encounter Practice Location Reason(s) Diagnoses Date Provider Care Team Description For Visit Members Associates [facility] Supervision of Salvador Referring In Womens other high risk 0-201 Michael. Pablito Provider: Health PA, pregnancies, first 8 Medical Michael Box [id number] weeks Center Salvador Danielson, 1522, gestation of Sameer [place], 120, Medical [facility] [id number], CAREN, [facility] 120, [place] [id number] Conner, tel:[phone] , [place]. CAREN, [address] tel: [phone]. [id number] tel:[phone] Matthew Prieto Supervision of Oscar-0 Salvador Referring In Womens other high risk 4-201 Michael. 700 Provider: Jorge WONG, pregnancies, first 8 Medical Michael PO Box [id number] weeks Center Salvador Danielson, 1522, gestation of Sameer Boyle, 120, Medical [facility] [id number], [place], Sameer 120, [place] [id number] Conner, tel: , . [place], tel: [phone]. [id number] tel:[phone] Matthew Prieto Encounter for Dec-2 Salvador Referring In Womens suprvsn of normal 1-201 Michael. 700 Provider: Jorge WONG, , first 7 Medical Michael PO Box trimesterEncounter [place] Salvador Danielson, 1522, for screening for Sameer Boyle, ot infec/parastc 120, [facility] [id number], for [place], [facility] 120, [place] screening of [id number] Conner, tel: motherEncntr screen , . [place], for infections w tel: [phone]. sexl mode of [id number] tel: transmissSupervisio [phone] n of other high risk pregnancies, first trimesterPreg care for patient w recurrent preg loss, first trimester9 weeks gestation of Matthew Prieto Preg care for Dec-0 Salvador Referring In Womens patient w recurrent 5-201 Michael. 700 Provider: Jorge WONG, preg loss, unsp 7 Medical Michael PO Box trimester Center Salvador Danielson 1522, , Sameer Begum, 120, Medical [facility] [id number], [place], Sameer 120, [place] [id number] Conner, tel: , . [place], tel: [phone]. [id number] tel:[phone] Matthew Prieto Recurrent Nov- Raman Referring In Womens lossPreg care for 6-201 [place]. Provider: Jorge WONG, patient w recurrent 7 700 Michael PO Box preg loss, unsp Medical Salvador Danielson, 1522, trimester Center P[address], [facility], 120, [place] [id number] Vang, [facility] 120, Conner FABIAN, tel:[phone] [place], , [place]. [id number]. tel: tel: [phone] Associates Conner Recurrent Apr-2 Salvador Referring In Womens loss 0-201 [employer] 700 Provider: Health PA, 6 [facility] PO Box Center Salvador Danielson, 1522, , [place] [address] [place], [facility], Medical Conner FABIAN, [place] [id number], [place], [facility] 120, [place] [id number] [place], tel: , [place]. [place], tel:[phone]. [id number] tel:[phone] Associates Conner Complete or unsp Mar-0 Salvador In Womens spontaneous 7-201 [employer] 700 Health PA, without 6 Medical PO Box complication Center 1522, , [facility] Shy, 120, CAREN, Conner, [id number], [place], [place] tel: , [place]. tel: [phone] Associates [facility]ner Threatened Mar-0 Salvador In Womens 3-201 [employer] 700 Health PA, 6 Medical PO Box Center 1522, , [facility] Shy, [facility], CAREN, Conner, [id number], [place], [place] [id number] tel: , [place]. tel: [phone] Associates Conner Threatened Mar-0 Salvador Referring In Womens 3-201 [employer] 700 Provider: Health PA, 6 Medical Svitlana Priest PO Box Center , [facility] 152, , [facility] Shy, 120, [place] Conner [place], [facility] 120, [id number], [place], [place], [id number] [place], tel: , [place]. [id number]. tel: tel: [phone] Associates Conner Clyde-1 Priest In Womens 9-201 Svitlana. Health PA, 5 [facility] [address] [place] [id number], [address], [facility] CAREN, 120, [id number], [place], CAREN, tel:[phone] , [place]. tel: [phone] Family History Family Member Diagnosis Age At [...] Unknown Payers Payer name Insurance type Covered constitution party ID Authorization(s) [facility] CAREN [id number] Social History Type Description Quantity Date Captured Alcohol Use Details No Caffeine Use Details No Tobacco Use Status Never smoked tobacco Smoking Status Never smoker Non-Smoking Tobacco Use : No Details Available : No Details Available Details Vital Signs Date / Height Weight BMI Pulse Blood Temperature Respiratory Body Head BMI Time: Rate Pressure Rate Surface Circumference percentile Area 111.10 19.1 111/2017 lbs 0 mm[Hg] 11:01 kg/m AM eter (2) Chief Complaint And [...]
--- OUTSIDE RECORDS SUMMARY | 2017-11-09 06:14 | External Medical Summary | Continuity of Care Document ---
:1990 Author Organization [facility] Address [address] [place], [place] [address] Phone Care Team Providers Name Role Phone Tarun Cotto MD Unavailable Allergies, Adverse Reactions, Alerts Substance Reaction [...] loss Complete or unsp spontaneous without complication Threatened Preg care for patient w recurrent preg loss, unsp trimester Procedures Procedure Date Unknown Results Test Name Date and Time Measure Units Reference Range Abnormal Flag Comments Unknown Advance Directives Directive Yes / No Effective Date File Name Unknown Encounters Encounter Practice Location Reason(s) Diagnoses Date Provider Care Team Description For Visit Members Matthew Prieto Preg care for Salvador Long In [facility] patient w -2016 Michael. 700 Provider: Jorge WONG, recurrent preg Medical [place] [address], loss, unsp Center Salvador Boyle, [place]y [place], trimester Sameer 120, 700 [id number], Conner [facility], [place] tel:[phone], Sameer 120, [address] . Conner, tel:[phone] [place], [phone] [id number]. tel:[phone] Matthew Prieto Raman In [facility] -[address] [place], [place] [address]n. Health JUDITH, 700 [address], Medical [place]y [place], Center , [id number], Sameer 120, [place] Conner, tel:[phone] [place], [id number], [place]. tel:[phone] Matthew Prieto Recurrent Feb- Raman Referring In Womens -2017 [place]. Provider: [facility] JUDITH, lossPreg care [address] [place] [address] [address], for patient w Medical Salvador Danielson, CAREN Begum, recurrent preg Center Pablito Boyle , loss, unsp Sameer 120, Medical [place] trimester Conner, [place] tel:[phone] [place], Sameer 120, [id number], [place], . [place], tel:[phone]. [id number] tel:[phone] Matthew [place] Recurrent Jul- Salvador Referring In Womens loss -2016 [place]. 700 Provider: [facility] JUDITH Medical Michael [address], Center Salvador Boyle, Shy [place], Sameer 120, 700 [id number], Conner [facility], [place] tel:[phone], Sameer 120, [address] [place]. Conner, tel:[phone] [place], [id number]. tel:[phone] Matthew [place] Complete or Jun-07 Salvador In Womens unsp -2016 [place]. 700 Health JUDITH, spontaneous Medical [address], Center Shy Boyle [place], without Sameer 120, [id number], complication Conner CAREN, tel:[phone], [address] [place]. tel:[phone] Matthew [place] Threatened Mar-03 Salvador In Womens -2016 [place]. 700 Health JUDITH, Medical [address], Center Shy [place], Sameer 120, [id number], Conner CAREN, tel:[phone], [address] [place]. tel:[phone] Matthew [place] Threatened Mar-03 Salvador Referring In Womens -2016 [place]. 700 Provider: [facility] Wilbert WONGb [address], Center Martha Boyle [facility] Shy [place], Sameer 120, Medical [id number], [address] [place] [address] [place], Sameer 120, tel:[phone], Conner, [address] [place]. [place], tel:[phone]. [id number] tel:[phone] Matthew [place] Priest In Women -2014 Svitlana. [address] [place] [address], Medical [address], Center Shy Boyle, CAREN, Sameer 120, [id number], Conner, CAREN, tel:[phone], [address] [place]. tel:[phone] Family History Family Member Diagnosis Age At [...] Unknown Payers Payer name Insurance type Covered republican ID Authorization(s) [facility] [id number] Social History Type Description Quantity Date Captured Unknown Vital Signs Date / Height Weight BMI Pulse Blood Temperature Respiratory Body Head BMI Time: Rate Pressure Rate Surface Circumference percentile Area Unknown Chief Complaint And Reason For Visit Unknown Chief Complaint And Reason For Visit Reason For Referral Reason For Referral Unknown Plan Of Care Date Type Action Status Appointment Tiffanie Lauren BOOKED Date Type Problem Goal Intervention Status Start Date Unknown. History Of Present Illness Encounter Date Complaint History Of Present Illness This patient has no known history of present illness Functional Status Encounter Date Functional Assessment Cognitive Assessment Unknown Medications Administered Medication Instructions Dosage Effective Dates (start - stop) Status Comments Drug Treatment Unknown Instructions Date Instruction Additional Information Unknown
--- OUTSIDE RECORDS SUMMARY | 2017-11-09 06:14 | External Medical Summary | Continuity of Care Document ---
:1990 Author Organization [facility] Address [address] [place], [place] [id number] Phone Care Team Providers Name Role Phone [...] Complete or unsp spontaneous without complication Threatened Procedures Procedure Date No Charge Office Visit Results Test Name Date and Time Measure Units Reference Range Abnormal Flag Comments Unknown Advance Directives Directive Yes / No Effective Date File Name Unknown Encounters Encounter Practice Location Reason(s) Diagnoses Date Provider Care Team Description For Visit Members Matthew Prieto Preg care for Salvador Referring In Women patient w -2017 Michael. 700 Provider: [facility], recurrent preg Medical [place] [address], loss, unsp Center Salvador [place]le, [place], [place], trimester Sameer 120, 700 [id number], Conner [facility], [place] tel:[phone], Sameer 120, [address] . Conner, tel:[phone] [place], [phone] [id number]. tel:[phone] Matthew Prieto [facility] Raman Referring In Womens -2017 [place]. Provider: Jorge WONG, lossPreg care 700 Michael [address], for patient w Medical Salvador Danielson, CAREN Begum, recurrent preg Center , [place] , loss, unsp Sameer 120, Medical [place] trimester Conner, [place] tel:[phone] [place], Sameer 120, [id number], [place], . [place], tel:[phone]. [id number] tel:[phone] Matthew Prieto Recurrent Jul- Salvador Referring In Womens loss -2016 Michael. 700 Provider: Jorge WONG Medical Michael [address], Center , Salvador Danielson, CAREN Begum, Sameer 120, 700 [id number], Conner, [facility], [place] tel:[phone], Sameer 120, [address] [place]. Conner, tel:[phone] [place], [id number]. tel:[phone] Matthew Prieto Complete or Mar-07 Salvador In Womens unsp -2016 [place]. 700 Jorge WONG, spontaneous Medical [address], Center Shy [place], without Sameer 120, [id number], complication Conner, CAREN, tel:[phone], [address] [place]. tel:[phone] Matthew [place] Threatened Mar-03 Salvador In Womens -2016 [place]. 700 Jorge WONG, Medical [address], Center Shy [place], Sameer 120, [id number], Conner, CAREN, tel:[phone], [address] [place]. tel:[phone] Matthew [place] Threatened Mar-03 Salvador Referring In Womens -2016 Michael. 700 Provider: Wilbert Mercedes Priest [address], Center Martha Boyle [facility] Shy [place], Sameer 120, Medical [id number], Conner [place], Sameer 120, tel:[phone], Conner, [address] [place]. [place], tel:[phone]. [id number] tel:[phone] Matthew [place] Priest In Womens -2014 Svitlana. [address] [place] [address], Medical [address], [place]y Boy[place], Sameer 120, [id number], [place], [place], tel:[phone], [address] [place]. tel:[phone] Family History Family Member Diagnosis Age At [...] Unknown Payers Payer name Insurance type Covered libertarian ID Authorization(s) [facility] [id number] Social History Type Description Quantity Date Captured [...]
--- OUTSIDE RECORDS SUMMARY | 2017-11-09 06:14 | External Medical Summary | Continuity of Care Document ---
:1990 Author Organization [email or web address] Address [address] [place], [place] [id number] Phone Care Team Providers Name Role Phone [...] third trimester 30 weeks gestation of - Threatened Recurrent loss [...] second trimester 17 weeks gestation of - Encounter for suprvsn [...] of normal 1-201 Michael. 700 Provider: Health CA, , third 8 Medical Michael PO Box [id number] weeks [place] Salvador Danielson, 1522, gestation of Sameer Boyle, 120, Medical [facility] [id number], CAREN, [place] [address], [id number] Conner, tel: , . CAREN, [id number] tel: [phone]. [id number] tel:[phone] Matthew Prieto Supervision of Salvador Referring In Womens other high risk 7-201 Michael. 700 Provider: Health PA, pregnancies, 8 Medical Michael PO Box third [email or web address] Center Salvador Danielson, 1522, weeks gestation Sameer Boyle, of 120, Medical [facility] [id number], [place], Sameer 120, [place] [id number] Conner, tel: , [place]. [place], tel: [phone]. [id number] tel:[phone] Matthew Prieto Supervision of May-0 Salvador Referring In Womens other high risk 3-201 Michael. 700 Provider: Health PA, pregnancies, 8 Medical Michael PO Box third [id number] Center Salvador R, 1522, weeks gestation Sameer Boyle, of 120, Medical [facility] [id number], [place], Sameer 120, [place] [id number] Conner, tel: , [place]. [place], tel: [phone]. [id number] tel:[phone] Matthew Prieto Supervision of Apr-0 Salvador Referring In Womens other high risk 5-201 Michael. 700 Provider: Health CA, pregnancies, 8 Medical Michael PO Box second Center Salvador R, 1522, [id number] weeks Sameer Boyle, gestation of 120, Medical [place], [facility] [id number], [place], Sameer 120, [place] [id number] Conner, tel: , [place]. [place], tel: [phone]. [id number] tel:[phone] Matthew Prieto Supervision of Mar-0 Salvador Referring In Womens other high risk 8-201 Michael. 700 Provider: Health PA, pregnancies, 8 Medical Michael PO Box second Center Salvador R, 1522, [id number] weeks Sameer Boyle, gestation of 120, Medical [place], [facility] [id number], [place], Sameer 120, [place] [id number] Conner, tel: , [place]. [place] tel: [phone]. [id number] tel:[phone] Matthew Prieto Supervision of Mar-0 Salvador Referring In Womens Ultrasound other high risk 8-201 Michael. 700 Provider: Health PA, pregnancies, 8 Medical Michael PO Box second Center Salvador R, 1522, trimesterPreg Sameer Boyle, care for patient 120, Medical [place], w recur [facility] [id number], loss, second [place], Sameer 120, [place] trimesterEncounte [id number] Conner, tel: r For , [place]. [place], Screening For tel: [phone]. [id number] tel:316 weeks gestation [phone] of Associates Conner Preg care for May- Salvador Referring In Womens patient w recur 5-201 Michael. 700 Provider: Health JUDITH, preg loss, second 8 Medical Michael PO Box [id number] weeks Center Salvador R, 1522, gestation of Sameer Boyle, 120, Medical [facility] [id number], [place], Sameer 120, [place] [id number] Conner, tel: , [place]. [place], tel: [phone]. [id number] tel:[phone] Matthew Prieto Supervision of Oscar-2 Salvador Referring In Womens other high risk 5-201 Michael. 700 Provider: Health PA, pregnancies, 8 Medical Michael PO Box second Center Salvador R, 1522, [id number] weeks Sameer Boyle, gestation of 120, Medical [place], [facility] [id number], [place], Sameer 120, [place] [id number] Conner, tel: , [place]. [place], tel: [phone]. [id number] tel:[phone] Matthew Prieto Supervision of Oscar-1 Salvador Referring In Womens other high risk 0-201 Michael. 700 Provider: Health PA, pregnancies, 8 Medical Michael PO Box first [email or web address] Center Salvador R, 1522, weeks gestation Sameer Boyle, of 120, Medical [facility] [id number], [place], Sameer 120, [place] [id number] Conner, tel: , [place]. [place], tel: [phone]. [id number] tel:[phone] Matthew Prieto Supervision of Oscar-0 Salvador Referring In Womens other high risk 4-201 Michael. 700 Provider: Health JUDITH, pregnancies, 8 Medical Michael PO Box first [id number] Center Salvador R, 1522, weeks gestation Sameer Boyle, of 120, Medical Conner FABIAN, Carole Boyle [id number], [place], Sameer 120, [place] [id number] Conner, tel: , [place]. [place], tel:[phone]. [id number] tel:[phone] Matthew Prieto Supervision of Dec-2 Salvador Referring In Womens other high risk 1-201 [place]. 700 Provider: Health JUDITH, pregnancies, 7 Medical Michael PO Box first Center Salvador R, 1522, trimesterPreg , [place] [address] [place], care for patient 120, Medical [place], w recurrent preg Conner, [place] [id number], loss, first [place], Sameer 120, [place] trimesterEncntr [id number] Conner, tel: screen for , [place]. [place], infections w sexl tel: [phone]. mode of [id number] tel: transmissEncounte [id number] r for screening for oth infec/parastc diseasesEncounter for suprvsn of normal , first trimesterEncounte r for screening of mother9 weeks gestation of Matthew Prieto Preg care for Dec-0 Salvador Referring In Womens patient w 5-201 Michael. 700 Provider: Jorge WONG, recurrent preg 7 Medical Michael PO Box loss, unsp [place] Salvador R, 1522, trimester , [place] [address] [place], 120, Medical [facility] [id number], [place], [facility] 120, [place] [id number] Conner, tel: , [place]. [place], tel: [phone]. [id number] tel:[phone] Matthew Prieto Recurrent Nov-1 Raman Referring In Womens 6-201 [place]. Provider: Health JUDITH, lossPreg care for 7 700 Michael PO Box patient w Medical Salvador R, 1522, recurrent preg Center torie You unsp , [facility] CAREN, trimester 120, Center [id number], Conner, [facility] 120, [place] Conner FABIAN, tel:[phone] [place], , [place]. [id number]. tel: tel:[phone] Matthew Prieto Recurrent Apr-2 Salvador Referring In Womens loss 0-201 [place]. 700 Provider: Health PA, 6 Medical [place] PO Box Center Salvador R, 1522, , [place] [address] [place], 120, Medical CAREN, Conner, [place] , [place], [place] [address], Conner, tel: , . [place] tel: [phone]. [id number] tel:[phone] Associates Conner Complete or unsp Mar-0 Salvador In Womens spontaneous 7-201 [place]. 700 Health PA, without 6 Medical PO Box complication Center 1522, , [facility] [place], 120, [place], Pri[place], [id number], [place], tel: , [place]. tel: [phone] Associates Conner Threatened Mar-0 Salvador In Womens 3-201 [place]. 700 Health PA, 6 Medical PO Box Center 1522, , [facility] [place], [facility], CAREN, Conner, , [place], tel: , [place]. tel: [phone] Associates Conner Threatened Mar-0 Salvador Referring In Womens 3-201 [place]. 700 Provider: Health PA, 6 Medical Svitlana Priest PO Box Center K, [facility] Taj, , [facility] [place], 120, [place] Dr FABIAN, Conner, [place] [address], [id number], [place], [place], [id number] [place], tel: , . [id number]. tel: tel: [phone] Associates [facility] Clyde-1 Priest In Womens 9-201 Svit[place]ana. Health PA, 5 [facility] PO Box Medical [facility]2, [place] Dr Shy, [facility] [place], 120, [id number], Pri[place], CAREN, tel:[phone] , [place]. tel: [phone] Family History Family Member Diagnosis Age At [...] Unknown Payers Payer name Insurance type Covered alliance party ID Authorization(s) ANGEL CAREN MUNROE [id number] Social History Type Description Quantity Date Captured Alcohol Use Details No Caffeine Use Details Unknown Tobacco Use Status Unknown Smoking Status Never smoker Vital Signs Date / Height Weight BMI Pulse Blood Temperature Respiratory Body Head BMI Time: Rate Pressure Rate Surface Circumference percentile Area 144.20 24.7 118/73 -2018 lbs 5 mm[Hg] 10:43 kg/m AM eter (2) Chief Complaint And Reason For Visit Unknown Chief Complaint And Reason For Visit Reason For Referral Reason For Referral Unknown Plan Of Care Date Type Action Status Appointment Tiffanie Lauren BOOKED Future Order: Lab Order Pap Smear With HPV Reflex If ASCUS Ordered ([id number]), Collected on: Future Order: Radiology Order Complete OB Ultrasound > 14 Weeks Ordered ([id number]) Date Type Problem Goal Intervention Status Start [...]
--- OUTSIDE RECORDS SUMMARY | 2017-11-09 06:14 | External Medical Summary | Continuity of Care Document ---
:1990 Author Organization [facility] Address [address] [place], [place] [id number] Phone Care Team Providers Name Role Phone Tarun Cotto MD Unavailable Unavailable Allergies, Adverse Reactions, Alerts Substance Reaction Severity Status amoxicillin Unknown Active lactose Unknown Active Medications Medication Instructions Dosage Effective Dates Status Comments (start - stop) Tylenol Extra take 2 tablet by oral 1000 MG - Active Strength 500 mg route every 6 hours tablet as needed 28 mg-800 - Active mcg tablet Problems Condition Effective Dates (start - stop) Clinical Status Supervision of other high risk - pregnancies, second trimester 14 weeks gestation of - Threatened Recurrent loss [...] - mother 9 weeks gestation of - Threatened Preg care for patient w recurrent preg loss, unsp trimester Procedures Procedure Date OB Visit No Charge Results Test Name Date and Time Measure Units Reference Range Abnormal Flag Comments Unknown Advance Directives Directive Yes / No Effective Date File Name Unknown Encounters Encounter Practice Location Reason(s) Diagnoses Date Provider Care Team Description For Visit Members Matthew Prieto Supervision of Oscar-2 Salvador Referring In Womens other high risk 5-201 [place]. 700 Provider: Jorge WONG, pregnancies, second 8 Medical Michael PO Box [id number] weeks Center Salvador R, 1522, gestation of Sameer Boyle, 120, Medical [facility] [id number], [place], Sameer 120, [place] [id number] Conner, tel: , [place]. [place], tel: [phone]. [id number] tel:[phone] Matthew Prieto Supervision of Apr-1 Salvador Referring In Womens other high risk 0-201 [place]. 700 Provider: Jorge WONG, pregnancies, first 8 Medical Michael PO Box [id number] weeks [place] Salvador R, 1522, gestation of Sameer Boyle, 120, Medical [facility] [id number], [place], Sameer 120, [place] [id number] Conner, tel: , [place]. [place], tel: [phone]. [id number] tel:[phone] Matthew Prieto Supervision of Oscar-0 Salvador Referring In Womens other high risk 4-201 [place]. 700 Provider: Jorge WONG, pregnancies, first 8 Medical Michael PO Box [id number] weeks [place] Salvador R, 1522, gestation of Sameer Boyle, 120, Medical [facility] [id number], [place], Sameer 120, [place] [id number] Conner, tel: , . [place], tel: [phone]. [id number] tel:[phone] Matthew Prieto Supervision of Mar-2 Salvador Referring In Womens other high risk 1-201 [place]. 700 Provider: Jorge WONG, pregnancies, first 7 Medical Michael PO Box trimesterPreg care Center Salvador R, 1522, for patient w Sameer Boyle, recurrent preg 120, Medical [place], loss, [facility] [id number], trimesterEncntr [place], Sameer 120, [place] screen for [id number] [place], tel: infections w sexl , [place]. [place], mode of tel:[phone]. transmissEncounter [id number] tel: for screening for [id number] oth infec/parastc diseasesEncounter for suprvsn of normal , first trimesterEncounter for screening of mother9 weeks gestation of Associates Conner Preg care for Dec-0 Salvador Referring In Womens patient w recurrent 5-201 Michael. 700 Provider: Jorge WONG, preg loss, unsp 7 Medical Michael PO Box trimester Center Salvador R, 1522, , [address], [facility], Medical [facility] [id number], [place], [place] [address], [id number] Conner, tel: , . [place], tel: [phone]. [id number] tel:[phone] Matthew Prieto Recurrent Nov- Raman Referring In Womens lossPreg care for 6-201 [place]. Provider: Jorge WONG, patient w recurrent 7 700 Michael PO Box preg loss, unsp Medical Salvador R, 1522, trimester Center [address], [facility], [facility], [place] [id number], [place] [address], Conner FABIAN, tel: [phone] [place], , [place]. [id number]. tel: tel: [phone] Matthew Prieto Recurrent Apr-2 Salvador Referring In Womens loss 0-201 Michael. 700 Provider: Jorge WONG, 6 Medical Michael PO Box Center Salvador R, 1522, , [place] [address] [place], [facility], Medical [facility] [id number], [place], [facility] 120, [id number] Conner, tel: , . [place], tel: [phone]. [id number] tel:[phone] Matthew Prieto Complete or unsp Mar-0 Salvador In Womens spontaneous 7-201 Michael. 700 Jorge WONG, without 6 Medical PO Box complication Center 1522, , [facility] [place], [facility], Conner FABIAN [id number], [place], [id number] tel: , [place]. tel: [phone] Associates [facility]ner Threatened Mar-0 Salvador In Womens 3-201 [place]. 700 Health JUDITH, 6 Medical PO Box Center 1522, , Sameer Begum, 120, CAREN, Conner, [id number], [place], [id number] tel: , [place]. tel: [phone] Matthew Prieto Threatened Mar-0 Salvador Referring In Womens 3-201 [place]. 700 Provider: Jorge WONG, 6 Medical Svitlana Priest PO Box Center K, 700 1522, , [facility] [place], 120, [place] [address] FABIAN, Conner, [place] [address], , [place], [place], [id number] [place], tel: , . [id number]. tel: tel: [phone] Associates Conner Clyde-1 Priest In Womens 9-201 Svit[place]ana. Jorge WONG, 5 700 PO Box [facility] 1522, [address], [facility] CAREN, 120, [id number], Pri[place], [place], tel: [phone] , [place]. tel: [phone] Family History Family Member Diagnosis Age At [...] Insurance type Covered alliance party ID Authorization(s) LISA [place] BL [id number] Social History Type Description Quantity Date Captured Alcohol Use Details No Caffeine Use Details Unknown Tobacco Use Status Unknown Smoking Status Never smoker Vital Signs Date / Height Weight BMI Pulse Blood Temperature Respiratory Body Head BMI Time: Rate Pressure Rate Surface Circumference percentile Area 117.30 20.1 137/2018 lbs 3 mm[Hg] 10:40 kg/m AM eter (2) Chief Complaint And [...]
--- OUTSIDE RECORDS SUMMARY | 2017-11-09 06:14 | External Medical Summary | Continuity of Care Document ---
:1990 Author Organization [facility] Address [address] [place], [place] [address] Phone Care Team Providers Name Role Phone [...] , third 8 Medical Michael [facility] Salvador R, 1522, r For Sameer Boyle 700 [place], Screening For 120, Medical [place], Streptococcus B36 Conner Eidson [id number], weeks gestation CAREN Sameer 120, [place] of [id number] Conner, tel:[phone] , [place]. [place], tel: [phone]. [id number] tel:[phone] Matthew Prieto Encounter for Clyde-1 Salvador Referring In Womens suprvsn of normal 4-201 Michael. 700 Provider: Health PA, , third 8 Medical Michael PO Box [id number] weeks Center Salvador Danielson, 1522, gestation of Sameer Boyle, 120, Medical [facility] [id number], [place], Sameer 120, [place] [id number] Conner, tel: , [place]. [place], tel: [phone]. [id number] tel:[phone] Matthew Prieto Decreased Clyde-0 Salvador Referring In Womens movements, third 8-201 Michael. 700 Provider: Health PA, trimester, unsp33 8 Medical Michael PO Box weeks gestation Center Salvador R, 1522, of Sameer Boyle, 120, Medical [facility] [id number], [place], [facility] 120, [place] [id number] Conner, tel: , [place]. [place], tel: [phone]. [id number] tel:[phone] Matthew Prieto Clyde-0 Salvador In Womens 8-201 Michael. 700 Health JUDITH, 8 Medical PO Box Center 1522, Sameer Boyle, 120, Conner FABIAN, [id number], [place], [place] [id number] tel: , [place]. tel: [phone] Matthew Prieto Encounter for May-3 Salvador Referring In Womens suprvsn of normal 1-201 [place]. 700 Provider: Health PA, , third 8 Medical Michael PO Box [id number] weeks Center Salvador R, 1522, gestation of Sameer Boyle, 120, Medical [facility] [id number], [place], Sameer 120, [place] [id number] Conner, tel: , [place]. [place], tel: [phone]. [id number] tel:[phone] Matthew Prieto Supervision of May-1 Salvador Referring In Womens other high risk 7-201 Michael. 700 Provider: Health PA, pregnancies, 8 Medical Michael PO Box third [id number] Center Salvador R, 1522, weeks gestation Sameer Boyle, of 120, Medical IDConner, [place] [id number], [place], Sameer 120, [place] [id number] Conner, tel:+ , [place]. [place], tel: [phone]. [id number] tel:[phone] Matthew Prieto Supervision of May-0 Salvador Referring In Womens other high risk 3-201 Michael. 700 Provider: Health PA, pregnancies, 8 Medical Michael PO Box third [id number] Center Salvador R, 1522, weeks gestation Sameer Boyle, of 120, Medical [place], [facility] [id number], [place], Sameer 120, [place] [id number] Conner, tel:+ , [place]. [place], tel: [phone]. [id number] tel:[phone] Matthew Prieto Supervision of Apr-0 Salvador Referring In Womens other high risk 5-201 Michael. 700 Provider: Health PA, pregnancies, 8 Medical Michael PO Box second Center Salvador R, 1522, [id number] weeks Sameer Boyle, gestation of 120, Medical [place], [facility] [id number], [place], Sameer 120, [place] [id number] Conner, tel:+ , [place]. [place], tel: [phone]. [id number] tel:[phone] Matthew Prieto Supervision of Mar-0 Salvador Referring In Womens other high risk 8-201 Michael. 700 Provider: Health PA, pregnancies, 8 Medical Michael PO Box second Center Salvador R, 1522, [id number] weeks Sameer Boyle, gestation of 120, Medical [place], Conner, [place] [id number], [place], Sameer 120, [place] [id number] Conner, tel: , [place]. [place] tel: [phone]. [id number] tel:[phone] Matthew Prieto Supervision of Mar-0 Salvador Referring In Womens Ultrasound other high risk 8-201 Michael. 700 Provider: Health PA, pregnancies, 8 Medical Michael PO Box second Center Salvador R, 1522, trimesterPreg Sameer Boyle, care for patient 120, Medical [place], w recur preg Conner, [place] [id number], loss, second [place], Sameer 120, [place] trimesterEncounte [id number] Conner, tel:2 r For , [place]. [place], Screening For tel:[phone]. [id number] tel: weeks gestation [phone] of Associates Conner Preg care for May- Salvador Referring In Womens patient w recur 5-201 Michael. 700 Provider: Health PA, preg loss, second 8 Medical Michael PO Box [id number] weeks Center Salvador R, 1522, gestation of Sameer Boyle, 120, Medical [facility] [id number], [place], Sameer 120, [place] [id number] Conner, tel: , [place]. [place], tel:[phone]. [id number] tel:[phone] Matthew Prieto Supervision of Oscar-2 Salvador Referring In Womens other high risk 5-201 Michael. 700 Provider: Health PA, pregnancies, 8 Medical Michael PO Box second Center Salvador R, 1522, [id number] weeks Sameer Boyle, gestation of 120, Medical [place], Conner, [place] [id number], [place], Sameer 120, [place] [id number] Conner, tel: , [place]. [place], tel: [phone]. [id number] tel:[phone] Matthew Prieto Supervision of Oscar-1 Salvador Referring In Womens other high risk 0-201 Michael. 700 Provider: Health PA, pregnancies, 8 Medical Michael PO Box first [id number] Center Salvador R, 1522, weeks gestation Sameer Boyle, of 120, Medical [facility] [id number], [place], Sameer 120, [place] [id number] Conner, tel: , [place]. [place], tel: [phone]. [id number] tel:[phone] Matthew Prieto Supervision of Oscar-0 Salvador Referring In Womens other high risk 4-201 Michael. 700 Provider: Health PA, pregnancies, 8 Medical Michael PO Box first [id number] Center Salvador R, 1522, weeks gestation , [address], of 120, Medical Con[facility] [id number], [place], Sameer 120, [place] [id number] Conner, tel: , [place]. [place], tel: [phone]. [id number] tel:[phone] Matthew Prieto Supervision of Dec-2 Salvador Referring In Womens other high risk 1-201 Michael. 700 Provider: Health PA, pregnancies, 7 Medical Michael PO Box first Center Salvador R, 1522, trimesterPreg , [address], care for patient 120, Medical [place], w recurrent preg Conner, Eidson [id number], loss, first [place], Sameer 120, [place] trimesterEncntr [id number] Conner, tel: screen for , [place]. [place] infections w sexl tel: [phone]. mode of [id number] tel: transmissEncounte [id number] r for screening for oth infec/parastc diseasesEncounter for suprvsn of normal , first trimesterEncounte r for screening of mother9 weeks gestation of Matthew [place] care for Dec-0 Salvador Referring In Womens patient w 5-201 Michael. 700 Provider: Jorge WONG, recurrent preg 7 Medical Michael LEACH Box loss, unsp Center Salvador R, 1522, trimester Dr [facility] Pabl[place] Begum, 120, Medical Conner [facility] [id number], [place], Sameer 120, [place] [id number] Conner, tel: , [place]. [place], tel: [phone]. [id number] tel:[phone] Matthew Prieto Recurrent Nov-1 Raman Referring In Womens 6-201 [place]. Provider: Jorge WONG, lossPreg care for 7 700 Michael PO Box patient w Medical Salvador R, 1522, recurrent preg Center [facility] Shy, torie, unsp , [facility] CAREN, trimester 120, Center [id number], Conner, Sameer 120, [place] Conner FABIAN, tel:[phone] [place] , [place]. [id number]. tel: tel: [phone] Associates Conner Recurrent Apr-2 Salvador Referring In Womens loss 0-201 [place]. 700 Provider: Health JUDITH, 6 [facility] PO Box Center Salvador Danielson, 1522, , [facility] Pablito Begum, 120, Medical [place], [facility] [id number], [place], [place] [address], Pri[place], tel: , . [place], tel: [phone]. [id number] tel:[phone] Associates Conner Complete or unsp Mar-0 Salvador In Womens spontaneous 7-201 [place]. 700 Health PA, without 6 Medical PO Box complication Center 1522, , [facility] Shy, [facility], [place], Conner, [id number], [place], [id number] tel: , [place]. tel: [phone] Associates Conner Threatened Mar-0 Salvador In Womens 3-201 [place]. 700 Health JUDITH, 6 Medical PO Box Center 152Wilma, , [facility] Shy, [facility], CAREN, Conner, [id number], [place], [place] [id number] tel: , [place]. tel: [phone] Associates Conner Threatened Mar-0 Salvador Referring In Womens 3-201 [place]. 700 Provider: Health JUDITH, 6 Medical Svitlana Priest PO Box Center , [facility] Taj, , [facility] Shy, [facility], [address] Dr FABIAN, Conner, [place] [address], [id number], [place], [place], [id number] [place], tel: , [place]. [id number]. tel: tel: [phone] Associates Conner Clyde-1 Priest In Womens 9-201 Svit[place]ana. Health PA, 5 [facility] Box [place] [address], [address], [facility], 120, [id number], [place], CAREN, tel:[phone] , [place]. tel: [phone] Family History Family Member Diagnosis Age At [...] Record Payers Payer name Insurance type Covered constitution party ID Authorization(s) [facility] [id number] [facility] [id number] Social History Type Description Quantity Date Captured [...] Complete OB Ultrasound > 14 Weeks Ordered ([id number]) Date Type Problem Goal Intervention Status Start [...]
--- OUTSIDE RECORDS SUMMARY | 2017-11-09 06:14 | External Medical Summary | Continuity of Care Document ---
:1990 Author Organization [facility] Address [address] [place], [place] [phone] Phone Care Team Providers Name Role Phone [...] Effective Dates (start - stop) Clinical Status 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, unsp trimester Threatened Recurrent loss Complete or unsp spontaneous without complication Threatened Preg care for patient w recurrent preg loss, unsp trimester Procedures Procedure Date Office/outpatient visit,est, mod Results Test Name Date and Time Measure Units Reference Range Abnormal Flag Comments Unknown Advance Directives Directive Yes / No Effective Date File Name Unknown Encounters Encounter Practice Location Reason(s) Diagnoses Date Provider Care Team Description For Visit Members Matthew Prieto [facility]reg care for Salvador [facility] Michael. 700 Provider: [facility] [place], recurrent preg Medical Michael [address], loss, unsp Center [place], [place], trimester Sameer 120, 700 [id number], Conner [facility], [place] tel:[phone], Sameer 120, [address] . Conner, tel:[phone] [place], [phone] [id number]. tel:[phone] Office/outpat Associates Conner Habitual Recurrent Feb-16 Raman Referring ient In Womens aborter PG. -2017 Zonia. Provider: visit,est, Health JUDITH, (chief lossPreg care [address] [place] [address] mod [address], complaint) for patient w Medical Salvador Danielson, CAREN Begum, recurrent preg Center Pablito Boyle , loss, unsp Sameer 120, Medical [place] trimester Conner, [place] tel:[phone] [place], Sameer 120, [id number], [place] . [place], tel:[phone]. [id number] tel:[phone] Matthew Prieto Recurrent Jul- Salvador Referring In Womens loss -2016 Michael. 700 Provider: Wilbert Mercedes [address], Center Salvador Boy[place], [place], Sameer 120, 700 [id number], Conner [facility], [place] tel:[phone], Sameer 120, [address] [place]. Conner, tel:[phone] [place], [phone] [id number]. tel:[phone] Matthew Prieto Complete or Mar-07 Salvador In Womens unsp -2016 [place]. 700 Jorge WONG, spontaneous Medical [address], Center [place], without Sameer 120, [id number], complication Conner [facility], tel:[phone], [address] [place]. tel:[phone] Matthew Prieto Threatened Mar-03 Salvador In Womens -2016 [employer]. 700 Jorge WONG, Medical [address], Center [place], Sameer 120, [id number], [place], [place], tel:[phone], [address] [place]. tel:[phone] Matthew Prieto Threatened Mar-03 Salvador Referring In Womens -2016 Michael. 700 Provider: Wilbert Mercedes [address], Center Martha Boyle [facility] CAREN Begum, Sameer 120, Medical , Conner [place], Sameer 120, tel:[phone], [place], [address] [place]. [place], tel:[phone]. [id number] tel:[phone] Associates [facility] Priest In Women -2014 Svitlana. [facility] Health MA, Medical [address], Center Shy Boyle, CAREN, Sameer 120, [id number], Prieto, [facility], tel:[phone], [address] [place]. tel:[phone] Family History Family Member Diagnosis Age At [...] Insurance type Covered constitution party ID Authorization(s) [facility] [id number] Social History Type Description Quantity Date Captured Alcohol Use Details No Caffeine Use Details No Tobacco Use Status Never smoked tobacco Smoking Status Never smoker Vital Signs Date / Height Weight BMI Pulse Blood Temperature Respiratory Body Head BMI Time: Rate Pressure Rate Surface Circumference percentile Area 64.00 110.80 19.0 79 116/2017 in lbs 2 /min mm[Hg] 2:15 kg/m PM eter (2) Chief Complaint And Reason For Visit Unknown Chief Complaint And Reason For Visit Reason For Referral Reason For Referral Unknown Plan Of Care Date Type Action Status Appointment Tiffanie Lauren BOOKED Date Type Problem Goal Intervention Status Start Date Unknown. History Of Present Illness Encounter Date Complaint History Of Present Illness Habitual aborter PG. 26 wf Gr 4 p 1 SAB 2 early ob with cramping. HPI: LMP 02/07/17, 4.4GA, EDC 11/14/17. Reports some mild cramping. Brown spots 4-5 days ago. Positive PG test on 03/10. sl. nausea. MBT A+. Worried about the cramping and sl. spots related to hx of SABs. Functional Status Encounter Date Functional Assessment Cognitive Assessment Unknown Medications Administered Medication Instructions Dosage Effective Dates (start - stop) Status Comments Drug Treatment Unknown Instructions Date Instruction Additional Information Unknown
--- OUTSIDE RECORDS SUMMARY | 2017-11-09 06:14 | External Medical Summary | Continuity of Care Document ---
:1990 Author Organization [facility] Address [address] [place], [place] [phone] Phone Care Team Providers Name Role Phone [...] Referring In Womens other high risk 5-201 [place]. 700 Provider: Jorge WONG, pregnancies, second 8 Medical Michael [address] [id number] weeks Center Salvador R, 1522, gestation of Sameer Boyle, 120, Medical Conner [facility] [id number], [place], [facility] 120, [place] [id number] [place], tel:+ , [place]. [place], tel: [phone]. [id number] tel:[phone] Matthew Prieto Supervision of Oscar-1 Salvador Referring In Womens other high risk 0-201 [place]. 700 Provider: Jorge WONG, pregnancies, first 8 Medical Michael PO Box [id number] weeks Center Salvador R, 1522, gestation of Sameer Boyle, 120, Medical Conner [facility] [id number], [place], [facility] 120, [place] [id number] [place], tel: , [place]. [place], tel: [phone]. [id number] tel:[phone] Matthew Prieto Oscar-1 Salvador In Womens 0-201 [place]. 700 Jorge WONG, 8 Medical PO Box Center 1522, Sameer [place], 120, [place], [id number], [place], [place] [id number] tel: , [place]. tel: [phone] Matthew Prieto Supervision of Oscar-0 Salvador Referring In Womens other high risk 4-201 [place]. 700 Provider: Jorge WONG, pregnancies, first 8 Medical Michael PO Box weeks Center Salvador R, 1522, gestation of Sameer Boyle, 120, Medical Conner [facility] [id number], [place], Sameer 120, [place] [id number] [place], tel: , [place]. [place] tel: [phone]. [id number] tel:[phone] Matthew Prieto Supervision of Dec-2 Salvador Referring In Womens other high risk 1-201 [place]. 700 Provider: Jorge WONG, pregnancies, first 7 Medical [place] PO Box trimesterPreg care Center Salvador R, 1522, for patient w , Sameer 700 [place], recurrent preg 120, Medical [place], loss, first [facility] [id number], trimesterEncntr [place], [facility] 120, [place] screen for [id number] Conner, tel: infections w sexl , [place]. [place], mode of tel:[phone]. transmissEncounter [id number] tel: for screening for [phone] oth infec/parastc diseasesEncounter for suprvsn of normal , first trimesterEncounter for screening of mother9 weeks gestation of Associates [place] Preg care for Dec-0 Salvador Referring In Womens patient w recurrent 5-201 Michael. 700 Provider: Health JUDITH, preg loss, unsp 7 Medical [facility] Box trimester Center Salvador Danielson, 1522, Dr [facility] Pablito Begum, 120, Medical Conner [facility] [id number], [place], [place] [address], [id number] [place], tel: , [place]. [place], tel: [phone]. [id number] tel:[phone] Matthew Prieto Recurrent Nov- Raman Referring In Womens lossPreg care for 6-201 [place]. Provider: Health PA, patient w recurrent 7 700 Michael PO Box preg loss, unsp Medical Salvador Danielson, 1522, trimester Center [address] Dr Shy, [facility], 120, Arjay [id number], [place] [address], Conner FABIAN, tel: [phone] [place], , [place]. [id number]. tel: tel: [phone] Matthew Prieto Recurrent Apr-2 Salvador Referring In Womens loss 0-201 Michael. 700 Provider: Jorge WONG, 6 Medical [place] PO Box Center Salvador Danielson, 1522, , [place] [address] [place], 120, Medical Conner [facility] [id number], [place], [facility] 120, [place] [id number] Conner, tel: , . [place] tel: [phone]. [id number] tel:[phone] Associates [facility] Complete or unsp Mar-0 Salvador In Womens spontaneous 7-201 [place]. 700 Health PA, without 6 Medical PO Box complication Center 1522, , Sameer Begum, 120, CAREN, [place], [id number], [place], [id number] tel: , [place]. tel: [phone] Associates [facility] Threatened Mar-0 Salvador In Womens 3-201 [place]. 700 Health PA, 6 Medical PO Box Center 1522, , Sameer Begum, 120, CAREN, [place], , [place], [place] [id number] tel: , [place]. tel: [phone] Associates [place] Threatened Mar-0 Salvador Referring In Womens 3-201 [place]. 700 Provider: Health JUDITH, 6 Medical Svitlana Pirest PO Box Center K, 700 1522, , [facility] Wilbert Begum, [address], [address] FABIAN, [place], [place] [address], , [place], [place], [id number] [place], tel: , [place]. [id number]. tel: tel: [phone] Associates Conner Clyde-1 Priest In Womens 9-201 Svitlana. Health PA, 5 700 PO Box Medical [address], [address]ole [address], Sameer FABIAN, 120, [id number], Prieto, CAREN, tel: [phone] , [place]. tel: [phone] Family History Family Member Diagnosis Age At [...] Insurance type Covered democrat ID Authorization(s) ANGEL FABIAN BL [id number] Social History Type Description Quantity Date Captured [...]
--- OUTSIDE RECORDS SUMMARY | 2017-11-09 06:14 | External Medical Summary | Continuity of Care Document ---
:1990 Author Organization [facility] Address [address] [place], [place] [phone] Phone Care Team Providers Name Role Phone [...] Effective Dates (start - stop) Clinical Status Decreased movements, third - trimester, unsp 33 weeks gestation of - Threatened Recurrent loss [...] weeks gestation of - Procedures Procedure Date non-stress test OB Visit No Charge Results Test Name [...] PA, , third 8 Medical Michael PO [facility] Salvador Danielson, 1522, r For , Sameer 700 [place], Screening For 120, Medical [place], Streptococcus B36 [facility] [id number], weeks gestation [place], [facility] 120, [place] of [id number] Conner, tel: , [place]. [place], tel: [phone]. [id number] tel:[phone] Matthew Prieto Encounter for Clyde-1 Salvador Referring In Womens suprvsn of normal 4-201 Michael. 700 Provider: Health JUDITH, , third 8 Medical Michael PO Box [email or web address] weeks Center Salvador Danielson, 1522, gestation of Sameer Boyle, 120, Medical Conner [facility] [id number], [place], Sameer 120, [place] [id number] Conner, tel: , [place]. [place], tel: [phone]. [id number] tel:[phone] Matthew Prieto Decreased Clyde-0 Salvador Referring In Womens movements, third 8-201 Michael. 700 Provider: Health JUDITH, trimester, unsp33 8 Medical Michael PO Box weeks gestation Center Salvador Danielson, 1522, of Sameer Boyle, 120, Medical Conner [facility] [id number], [place], Sameer 120, [place] [id number] Conner, tel: , [place]. [place], tel: [phone]. [id number] tel:[phone] Matthew Prieto Encounter for May-3 Salvador Referring In Womens suprvsn of normal 1-201 Michael. 700 Provider: Health JUDITH, , third 8 Medical Michael PO Box [id number] weeks Center Salvador Danielson, 1522, gestation of Sameer Boyle, 120, Medical Conner FABIAN, [place] [id number], [place], Sameer 120, [place] [id number] Conner, tel: , [place]. [place], tel: [phone]. [id number] tel:[phone] Matthew Prieto Supervision of May-1 Salvador Referring In Womens other high risk 7-201 Michael. 700 Provider: Health PA, pregnancies, 8 Medical Michael PO Box third [id number] Center Salvador R, 1522, weeks gestation Sameer Boyle, of 120, Medical Conner FABIAN, [place] [id number], [place], Sameer 120, [place] [id number] Conner, tel: , [place]. [place], tel: [phone]. [id number] tel:[phone] Matthew Prieto Supervision of May-0 Salvador Referring In Womens other high risk 3-201 Michael. 700 Provider: Health PA, pregnancies, 8 Medical Michael PO Box third [id number] Center Salvador R, 1522, weeks gestation Sameer Boyle, of 120, Medical CAREN, Conner [place] [id number], [place], Sameer 120, [place] [id number] Conner, tel: , [place]. [place], tel: [phone]. [id number] tel:[phone] Matthew Prieto Supervision of Apr-0 Salvador Referring In Womens other high risk 5-201 Michael. 700 Provider: Health PA, pregnancies, 8 Medical Michael PO Box second Center Salvador R, 1522, [id number] weeks Sameer Boyle, gestation of 120, Medical [place], Conner [place] [id number], [place], Sameer 120, [place] [id number] Conner, tel: , [place]. [place], tel: [phone]. [id number] tel:[phone] Matthew Prieto Supervision of Mar-0 Salvador Referring In Womens other high risk 8-201 [place]. 700 Provider: Health PA, pregnancies, 8 Medical Michael PO Box second Center Salvador R, 1522, [id number] weeks Sameer Boyle, gestation of 120, Medical [place], Conner [place] [id number], [place], Sameer 120, [place] [id number] Conner, tel: , [place]. [place], tel: [phone]. [id number] tel:[phone] Matthew Prieto Supervision of Mar-0 Salvador Referring In Womens Ultrasound other high risk 8-201 [place]. 700 Provider: Health PA, pregnancies, 8 Medical Michael PO Box second Center Salvador R, 1522, trimesterPreg Sameer Boyle, care for patient 120, Medical [place], w recur preg Conner [place] [id number], loss, second [place], Sameer 120, [place] trimesterEncounte [id number] Conner, tel: r For , [place]. [place], Screening For tel: [phone]. [id number] tel: weeks gestation [phone] of Associates Conner Preg care for May- Salvador Referring In Womens patient w recur 5-201 Michael. 700 Provider: Health JUDITH, preg loss, second 8 Medical Michael PO Box [id number] weeks Center Salvador R, 1522, gestation of Sameer Boyle, 120, Medical Conner [facility] [id number], [place], Sameer 120, [place] [id number] Conner, tel: , [place]. [place], tel: [phone]. [id number] tel:[phone] Matthew Prieto Supervision of Oscar-2 Salvador Referring In Womens other high risk 5-201 Michael. 700 Provider: Health JUDITH, pregnancies, 8 Medical Michael PO Box second Center Salvador R, 1522, [id number] weeks Sameer Boyle, gestation of 120, Medical [place], [facility] [id number], [place], Sameer 120, [place] [id number] Conner, tel: , [place]. [place] tel: [phone]. [id number] tel:[phone] Matthew Prieto Supervision of Oscar-1 Salvador Referring In Womens other high risk 0-201 Michael. 700 Provider: Jorge WONG, pregnancies, 8 Medical Michael PO Box first [id number] Center Salvador R, 1522, weeks gestation Sameer Boyle, of 120, Medical Conner [facility] [id number], [place], Sameer 120, [place] [id number] Conner, tel: , [place]. [place] tel: [phone]. [id number] tel:[phone] Matthew Prieto Supervision of Oscar-0 Salvador Referring In Womens other high risk 4-201 Michael. 700 Provider: Health JUDITH, pregnancies, 8 Medical Michael PO Box first [id number] Center Salvador R, 1522, weeks gestation Sameer Boyle, of 120, Medical Conner FABIAN, [place] [id number], [place], Sameer 120, [place] [id number] Conner, tel:[phone] , [place]. [place], tel: [phone]. [id number] tel:[phone] Matthew Prieto Supervision of Dec-2 Salvador Referring In Womens other high risk 1-201 Michael. 700 Provider: Jorge WONG, pregnancies, 7 Medical Michael PO Box first Center Salvador R, 1522, trimesterPreg , Sameer 700 [place], care for patient 120, Medical [place], w recurrent preg Conner, [place] [id number], loss, first [place], Sameer 120, [place] trimesterEncntr [id number] Conner, tel: screen for , [place]. [place], infections w sexl tel: [phone]. mode of [id number] tel: transmissEncounte [phone] r for screening for oth infec/parastc diseasesEncounter for suprvsn of normal , first trimesterEncounte r for screening of mother9 weeks gestation of Matthew Prieto Preg care for Dec-0 Salvador Referring In Womens patient w 5-201 Michael. 700 Provider: Jorge WONG, recurrent preg 7 Medical [facility] Box loss, unsp Center Salvador R, 1522, trimester , Sameer 700 [place], 120, Medical Conner [facility] [id number], [place], [facility] 120, [place] [id number] Conner, tel: , [place]. [place], tel: [phone]. [id number] tel:[phone] Matthew Prieto Recurrent Nov-1 Raman Referring In Womens 6-201 [place]. Provider: Jorge WONG, lossPreg care for 7 700 [facility] Box patient w Medical Salvador R, 1522, recurrent preg Center 700 [place], loss, unsp , [facility], trimester 120, [place] [id number], Conner, [facility] 120, [place] Conner FABIAN, tel:[phone] [place], , [place]. [id number]. tel: tel:[phone] Matthew Prieto Recurrent Apr-2 Salvador Referring In Womens loss 0-201 Michael. 700 Provider: Jorge WONG, 6 Medical [facility] Box Center Salvador R, 1522, , [facility] Pablito Begum, 120, Medical CAREN, Conner, [place] [id number], [place], [place] [address], [id number] Conner, tel: , . [place], tel:[phone]. [id number] tel:[phone] Associates Conner Complete or unsp Mar-0 Salvador In Womens spontaneous 7-201 [place]. 700 Health PA, without 6 Medical PO Box complication Center 1522, , [facility] [place], 120, [place], Pri[place], [id number], [place], [place] [id number] tel: , [place]. tel: [phone] Associates Conner Threatened Mar-0 Salvador In Womens 3-201 [place]. 700 Health PA, 6 Medical PO Box Center 1522, , [facility] [place], [facility], CAREN, Conner, , [place], [place] tel: , [place]. tel: [phone] Matthew Prieto Threatened Mar-0 Salvador Referring In Womens 3-201 [place]. 700 Provider: Health PA, 6 Medical Svitlana Priest PO Box Center K, [facility] 152, , [facility] [place], [facility], [place] Conner [place], [place] [address], [id number], [place], [place], [id number] [place], tel: , [place]. [id number]. tel: tel: [phone] Associates Con[facility] Sep- Priest In Womens 9-201 [place]. Health PA, 5 700 PO Box [place] 725202, [place] Dr Shy, [facility] [place], 120, [id number], Prieto, CAREN, tel:[phone] , [place]. tel: [phone] Family History Family Member Diagnosis Age At [...] Insurance type Covered constitution party ID Authorization(s) [facility] [id number] [facility] [id number] Social History Type Description Quantity Date Captured Alcohol Use Details No Caffeine Use Details Unknown Tobacco Use Status Unknown Smoking Status Never smoker Vital Signs Date / Height Weight BMI Pulse Blood Temperature Respiratory Body Head BMI Time: Rate Pressure Rate Surface Circumference percentile Area 147.70 25. lbs 5 3:28 kg/m PM eter (2) 0 3:28 kg/m PM eter (2) 147.40 25.3 lbs 0 mm[Hg] 3:27 kg/m PM eter (2) 147.40 . lbs 0 3:27 kg/m PM eter (2) 147.70 25.3 lbs 5 mm[Hg] 3:28 kg/m PM eter (2) Chief Complaint And Reason For Visit Unknown Chief Complaint And Reason For Visit Reason For Referral Reason For Referral Unknown Plan Of Care Date Type Action Status Appointment Tiffanie Lauren BOOKED Future Order: Lab Order Pap Smear With HPV Reflex If ASCUS Ordered ([id number]), Collected on: Future Order: Radiology Order Complete OB Ultrasound > 14 Weeks Ordered ([id number]) Date Type Problem Goal Intervention Status Start [...]
--- OUTSIDE RECORDS SUMMARY | 2017-11-09 06:14 | External Medical Summary | Continuity of Care Document ---
:1990 Author Organization [facility] [employer] [facility] Address [address] [place], [place] [id number] Phone Care Team Providers Name Role Phone [...] second trimester 24 weeks gestation of - Threatened Recurrent loss [...] For Visit Members Matthew Prieto Supervision of Apr-0 Salvador Referring In Womens other high risk 5-201 Michael. 700 Provider: Health JUDITH, pregnancies, 8 Medical Michael PO Box second Center Salvador R, 1522, [id number] weeks Sameer Boyle [place], gestation of 120, Medical [place], [facility] [id number], [place], Sameer 120, [place] [id number] Conner, tel: , . [place], tel: [phone]. [id number] tel:[phone] Matthew Prieto Supervision of Mar-0 Salvador Referring In Womens other high risk 8-201 Michael. 700 Provider: Health JUDITH, pregnancies, 8 Medical Michael PO Box second Center Salvador R, 1522, [email or web address] weeks Sameer Boyle, gestation of 120, Medical [place], [facility] [id number], [place], Sameer 120, [place] [id number] Conner, tel: , . [place], tel: [phone]. [id number] tel:[phone] Matthew Prieto Supervision of Mar-0 Salvador Referring In Womens Ultrasound other high risk 8-201 Michael. 700 Provider: Health JUDITH, pregnancies, 8 Medical Michael PO Box second Center Salvador R, 1522, trimesterPreg Sameer Boyle, care for patient 120, Medical [place], w recur [facility] [id number], loss, second [place], Sameer 120, [place] trimesterEncounte [id number] Conner, tel: r For , [place]. [place], Screening For tel: [phone]. [id number] tel: weeks gestation [phone] of Associates Conner Preg care for Feb-1 Salvador Referring In Womens patient w recur 5-201 Michael. 700 Provider: Health PA, preg loss, second 8 Medical Michael PO Box [id number] weeks Center Salvador R, 1522, gestation of Sameer Boyle, 120, Medical [facility] [id number], [place], Sameer 120, [place] [id number] Conner, tel: , [place]. [place], tel: [phone]. [id number] tel:[phone] Matthew Prieto Supervision of Oscar-2 Salvador Referring In Womens other high risk 5-201 Michael. 700 Provider: Health PA, pregnancies, 8 Medical Michael PO Box second Center Salvador R, 1522, weeks Sameer Boyle, gestation of 120, Medical [place], [facility] [id number], [place], Sameer 120, [place] [id number] Conner, tel: , [place]. [place], tel: [phone]. [id number] tel:[phone] Matthew Prieto Supervision of Oscar-1 Salvador Referring In Womens other high risk 0-201 Michael. 700 Provider: Health PA, pregnancies, 8 Medical Michael PO Box first [id number] Center Salvador R, 1522, weeks gestation Sameer Boyle, of 120, Medical CAREN, [facility] [id number], [place], Sameer 120, [place] [id number] Conner, tel: , [place]. [place], tel: [phone]. [id number] tel:[phone] Matthew Prieto Supervision of Oscar-0 Salvador Referring In Womens other high risk 4-201 Michael. 700 Provider: Health PA, pregnancies, 8 Medical Michael PO Box first [id number] Center Salvador R, 1522, weeks gestation , [place] [address] [place], of 120, Medical [facility] [id number], [place], Sameer 120, [place] [id number] Conner, tel: , [place]. [place], tel: [phone]. [id number] tel:[phone] Matthew Prieto Supervision of Dec-2 Salvador Referring In Womens other high risk 1-201 Michael. 700 Provider: Health PA, pregnancies, 7 Medical Michael LEACH Box first Center Salvador R, 1522, trimesterPreg , [place] [address] [place], care for patient 120, Medical [place], w recurrent preg Conner, [place] [id number], loss, first [place], Sameer 120, [place] trimesterEncntr [id number] Conner, tel: screen for , [place]. [place], infections w sexl tel: [phone]. mode of [id number] tel: transmissEncounte [phone] r for screening for oth infec/parastc diseasesEncounter for suprvsn of normal , first trimesterEncounte r for screening of mother9 weeks gestation of Associates Conner Preg care for Dec-0 Salvador Referring In Womens patient w 5-201 Michael. 700 Provider: Jorge WONG, recurrent preg 7 Medical Michael Ibarra loss, unsp Center Salvador R, 1522, trimester , [facility] Pablito Begum, 120, Medical Con[facility] [id number], [place], Sameer 120, [place] [id number] Conner, tel: , [place]. [place], tel: [phone]. [id number] tel:[phone] Matthew Prieto Recurrent Nov-1 Raman Referring In Womens 6-201 [place]onia. Provider: Jorge WONG, lossPreg care for 7 700 Michael Ibarra patient w Medical Salvador R, 1522, recurrent preg [place] Pablito Begum, torie, unsp , [facility] CAREN, trimester 120, Center [id number], Conner, [facility] 120, [place] Conner FABIAN, tel: [phone] [place], , [place]. [id number]. tel: tel: [phone] Associates Conner Recurrent Apr-2 Salvador Referring In Womens loss 0-201 [place]. 700 Provider: Health JUDITH, 6 Medical [place] PO Box Center [address], [facility] Pablito [place], 120, Medical [place], [facility] [id number], [place], [facility] 120, [place] [id number] Prieto, tel: , . [place], tel: [phone]. [id number] tel:[phone] Associates Conner Complete or unsp Mar-0 Salvador In Womens spontaneous 7-201 [place]. 700 Health PA, without 6 Medical PO Box complication Center 1522, , [facility] [place], [facility], [place], Conner, [id number], [place], [id number] tel: , [place]. tel: [phone] Associates [facility]ner Threatened Mar-0 Salvador In Womens 3-201 [place]. 700 Health PA, 6 Medical PO Box Center 152Wilma, , [facility] [place], [facility], Conner FABIAN, [id number], [place], [place] [id number] tel: , [place]. tel: [phone] Associates [facility] Threatened Mar-0 Salvador Referring In Womens 3-201 [place]. 700 Provider: Jorge WONG, 6 Medical Svitalna Priest PO Box Center K, [address] Dr Taj [facility] Wilbert Begum, [facility], [place] Dr FABIAN, Conner, [place] [address], [id number], [place], [place], [id number] [place], tel: , . [id number]. tel: tel: [phone] Associates [facility] Clyde-1 Priest In Womens 9-201 Svitlana. Health JUDITH, 5 [facility] [address] [place] [address], [place] Dr Shy, [facility], 120, [id number], Prieto, CAREN, tel:[phone] , [place]. tel: [phone] Family History Family Member Diagnosis Age At [...] Insurance type Covered constitution party ID Authorization(s) ANGEL MUNROE [id number] Social History Type Description Quantity Date Captured Alcohol Use Details No Caffeine Use Details Unknown Tobacco Use Status Unknown Smoking Status Never smoker Vital Signs Date / Height Weight BMI Pulse Blood Temperature Respiratory Body Head BMI Time: Rate Pressure Rate Surface Circumference percentile Area 134.80 23.1 122/2018 lbs 4 mm[Hg] 10:48 kg/m AM eter (2) Chief Complaint And Reason For Visit Unknown Chief Complaint And Reason For Visit Reason For Referral Reason For Referral Unknown Plan Of Care Date Type Action Status Appointment Tiffanie Lauren BOOKED Future Order: Lab Order Pap Smear With HPV Reflex If ASCUS Ordered ([id number]), Collected on: Future Order: Radiology Order Complete OB Ultrasound > 14 Weeks Ordered ([id number]) Date Type Problem Goal Intervention Status Start [...]
[2017-11-09] MEDS ORDERED: CARBOPROST 250 MCG/ML INJECTION IM PRN (06:15)
[2017-11-09] MEDS ORDERED: CALCIUM CARBONATE Chewable 500mg TABLET PO PRN ×2 (06:15→12:41)
[2017-11-09] MEDS ORDERED: LIDOCAINE 1% (10mg/ml) 2mL INJ PF SDV ID PRN (06:15)
[2017-11-09] MEDS ORDERED: ACETAMINOPHEN 500 MG TABLET PO PRN ×2 (06:15→12:41)
[2017-11-09] MEDS ORDERED: MAG-AL + SIM ORAL LIQUID 30ml PO PRN ×2 (06:15→12:41)
[2017-11-09] MEDS ORDERED: METHYLERGONOVINE 0.2 MG/ML INJECTION IM PRN (06:15)
[2017-11-09] MEDS ORDERED: SALINE FLUSH 10ml SYRINGE IV PRN (06:15)
[2017-11-09] MEDS ORDERED: D5LR 1,000 ML IV PRN (06:15)
--- OUTSIDE RECORDS SUMMARY | 2017-11-09 06:15 | External Medical Summary | Continuity of Care Document ---
:1990 Author Organization [facility] Address [address] [place], [place] [phone] Phone Care Team Providers Name Role Phone [...] For Visit Members Matthew Prieto Supervision of 1 Salvador Referring In Womens other high risk 7-201 Byron. 700 Provider: Jorge WONG, luis, [address] [place] [address] Box third [id number] Center Salvador , 1522, weeks gestation Sameer Boyle, of 120, Medical [place], [facility] [place] [address], [id number] Conner, tel: , [facility], tel: [phone]. [id number] tel:[phone] Matthew Prieto August-0 Salvador In Womens 4-201 Byron. 700 [facility] JUDITH, Medical PO Box Center 1522, Sameer Boyle, [facility], [facility] [id number], [id number] tel: , [facility] tel: [phone] Matthew Prieto Supervision of August-0 Salvador Referring In Womens other high risk 3-201 Byron. 700 Provider: Health PA, pregnancies, 8 Medical Michael PO Box third [id number] Center Salvador R, 1522, weeks gestation Sameer Boyle, of 120, Medical [place], [facility] [id number], [place], Sameer 120, [place] [id number] Conner, tel: , [place]. [place], tel: [phone]. [id number] tel:[phone] Matthew Prieto Supervision of Apr-0 Salvador Referring In Womens other high risk 5-201 Michael. 700 Provider: Health PA, pregnancies, 8 Medical Michael PO Box second Center Salvador R, 1522, [id number] weeks Sameer Boyle, gestation of 120, Medical [place], [facility] [id number], [place], Sameer 120, [place] [id number] Conner, tel: , [place]. [place], tel: [phone]. [id number] tel:[phone] Matthew Prieto Supervision of Mar-0 Salvador Referring In Womens other high risk 8-201 Michael. 700 Provider: Health PA, pregnancies, 8 Medical Michael PO Box second Center Salvador R, 1522, [id number] weeks Sameer Boyle, gestation of 120, Medical [place], [facility] [id number], [place], Sameer 120, [place] [id number] Conner, tel: , [place]. [place], tel: [phone]. [id number] tel:[phone] Matthew Prieto Supervision of Mar-0 Salvador Referring In Womens Ultrasound other high risk 8-201 Byron. 700 Provider: Health PA, pregnancies, 8 Medical Michael PO Box second Center Salvador R, 1522, trimesterPreg Sameer Boyle, care for patient 120, Medical [place], w recur preg Conner [place] [id number], loss, second [place], Sameer 120, [place] trimesterEncounte [id number] Conner, tel: r For , [place]. [place], Screening For tel: [phone]. [id number] tel:316 weeks gestation [phone] of Associates [facility]ner Preg care for Feb-1 Salvador Referring In Womens patient w recur 5-201 Michael. 700 Provider: Health JUDITH, preg loss, second 8 Medical Michael PO Box [id number] weeks Center Salvador R, 1522, gestation of Sameer Boyle, 120, Medical Conner [facility] [id number], [place], Sameer 120, [place] [id number] Conner, tel:+ , [place]. [place], tel: [phone]. [id number] tel:[phone] Matthew Priteo Supervision of Oscar-2 Salvador Referring In Womens other high risk 5-201 Michael. 700 Provider: Health JUDITH, pregnancies, 8 Medical Michael PO Box second Center Salvador R, 1522, [id number] weeks Sameer Boyle, gestation of 120, Medical [place], Prieto, [place] [id number], [place], Sameer 120, [place] [id number] Conner, tel:+ , [place]. [place], tel: [phone]. [id number] tel:[phone] Matthew Prieto Supervision of Oscar-1 Salvador Referring In Womens other high risk 0-201 Michael. 700 Provider: Health JUDITH, pregnancies, 8 Medical Michael PO Box first [id number] Center Salvador R, 1522, weeks gestation Sameer Boyle, of 120, Medical Conner [facility] [id number], [place], Sameer 120, [place] [id number] Conner, tel:+ , [place]. [place], tel: [phone]. [id number] tel:[phone] Matthew Prieto Supervision of Oscar-0 Salvador Referring In Womens other high risk 4-201 Michael. 700 Provider: Health PA, pregnancies, 8 Medical Michael PO Box first [id number] Center Salvador R, 1522, weeks gestation Sameer Boyle, of 120, Medical Conner FABIAN, [place] [id number], [place], Sameer 120, [place] [id number] Conner, tel: , [place]. [place], tel: [phone]. [id number] tel:[phone] Matthew Prieto Supervision of Dec-2 Salvador Referring In Womens other high risk 1-201 Michael. 700 Provider: Health PA, pregnancies, 7 Medical Michael PO Box first Center Salvador R, 1522, trimesterPreg , [facility] 700 [place], care for patient 120, Medical [place], w recurrent preg [facility] [id number], loss, first [place], Sameer 120, [place] trimesterEncntr [id number] Conner, tel: screen for , [place]. [place], infections w sexl tel: [phone]. mode of [id number] tel: transmissEncounte [id number] r for screening for oth infec/parastc diseasesEncounter for suprvsn of normal , first trimesterEncounte r for screening of mother9 weeks gestation of Associates Conner Bay care for Dec-0 Salvador Referring In Womens patient w 5-201 Michael. 700 Provider: Jorge WONG, recurrent preg 7 Medical [facility] Box loss, unsp Center Salvador R, 1522, trimester , [place] [address] [place], 120, Medical Conner [facility] [id number], [place], [facility] 120, [place] [id number] Conner, tel: , [place]. [place], tel: [phone]. [id number] tel:[phone] Matthew Prieto Recurrent Nov-1 Raman Referring In Womens 6-201 [place]. Provider: Jorge WONG, lossPreg care for 7 700 [facility] Box patient w Medical Salvador R, 1522, recurrent preg Center 700 [place], torie, unsp , [facility], trimester 120, [place] [id number], Prieto, [facility] 120, [place] Conner FABIAN, tel: [phone] [place], , [place]. [id number]. tel: tel: [phone] Matthew Prieto Recurrent Apr-2 Salvador Referring In Womens loss 0-201 Michael. 700 Provider: Jorge WONG, 6 Medical [facility] Box Center Salvador R, 1522, , [place] [address] [place], 120, Medical Conner [facility] [id number], [place], [facility] 120, [place] [id number] Conner, tel: , [place]. [place], tel: [phone]. [id number] tel:[phone] Associates Conner Complete or unsp Mar-0 Salvador In Womens spontaneous 7-201 Byron. 700 Health PA, without 6 Medical PO Box complication Center 1522, , Sameer Begum, 120, CAREN, Conner, [id number], [place], [id number] tel: , [place]. tel: [phone] Associates Conner Threatened Mar-0 Salvador In Womens 3-201 Byron. 700 Health PA, 6 Medical PO Box Center 1522, , Sameer Begum, 120, CAREN, Conner, , [place], [place] [id number] tel: , [place]. tel: [phone] Associates Conner Threatened Mar-0 Salvador Referring In Womens 3-201 Byron. 700 Provider: Health JUDITH, 6 Medical Svitlana Priest PO Box Center K, [facility] 1522, , Sameer Begum, [address], [address] [address] FABIAN, Conner, [place] [address], , [place], [place], [id number] [place], tel: , [place]. [id number]. tel: tel: [phone] Associates [facility]ner Clyde-1 Priest In Womens 9-201 Svitlana. Health JUDITH, 5 700 PO Box Medical 1522, Center Dr Shy, Sameer FABIAN, 120, [id number], Pri[place], [place], tel: [phone] [address] , [place]. tel: [phone] Family History Family Member Diagnosis Age At [...] type Covered alliance party ID Authorization(s) ANGEL MUNROE [id number] Social History Type Description Quantity Date Captured [...] Complete OB Ultrasound > 14 Weeks Ordered ([id number]) Date Type Problem Goal Intervention Status Start [...]
--- OUTSIDE RECORDS SUMMARY | 2017-11-09 06:15 | External Medical Summary | Continuity of Care Document ---
:1990 Author Organization [facility] Address [address] [place], [place] [address] Phone Care Team Providers Name Role Phone [...] trimester 11 weeks gestation of - Threatened Recurrent loss [...] For Visit Members Matthew Prieto Supervision of Salavdor Referring In Womens other high risk 0-201 Michael. 700 Provider: Health JUDITH, pregnancies, first 8 Medical Michael PO Box [id number] weeks [place] Salvador R, 1522, gestation of Sameer Boyleta, 120, Medical Conner [facility] [id number], [place], Sameer 120, [place] [id number] Conner, tel: , [place]. [place], tel: [phone]. [id number] tel:[phone] Matthew Prieto Supervision of Apr-0 Salvador Referring In Womens other high risk 4-201 Michael. 700 Provider: Jorge WONG, pregnancies, first 8 Medical Michael PO Box [id number] weeks [place] Salvador Danielson, 1522, gestation of Sameer Boyle, 120, Medical CAREN [facility] [id number], [place], [email or web address] 120, [place] [id number] Conner, tel: , [place]. [place], tel: [phone]. [id number] tel:[phone] Matthew Prieto Supervision of Dec-2 Salvador Referring In Womens other high risk 1-201 [place]. 700 Provider: Jorge WONG, pregnancies, first 7 Medical Michael PO Box trimesterPreg care Center Salvador R, 1522, for patient w Sameer Boyle, recurrent preg 120, Medical CAREN, loss, first [facility] [id number], trimesterEncntr [place], [email or web address] 120, [place] screen for [id number] Conner, tel:2 infections w sexl , [place]. [place], mode of tel: [phone]. transmissEncounter [id number] tel: for screening for [id number] ot infec/parastc diseasesEncounter for suprvsn of normal , first trimesterEncounter for screening of mother9 weeks gestation of Matthew Prieto Preg care for Dec-0 Salvador Referring In Womens patient w recurrent 5-201 Michael. 700 Provider: Jorge WONG, preg loss, unsp 7 Medical Michael PO Box trimester Center Salvador R, 1522, , [email or web address] [place], 120, Medical RUST [facility] [id number], [place], [place] [address], [id number] Conner, tel: , . [place], tel: [phone]. [id number] tel:[phone] Associates Conner Recurrent Nov- Raman Referring In Womens lossPreg care for 6-201 [place]. Provider: Jorge WONG, patient w recurrent 7 700 Michael PO Box preg loss, unsp Medical Salvador R, 1522, trimester Center [address] Dr Shy, [facility], 120, [place] [id number], Conner, [email or web address] 120, Conner FABIAN, tel:[phone] [place], , [place]. [id number]. tel: tel: [phone] Associates Conner Recurrent Apr-2 Salvador Referring In Womens loss 0-201 [place]. 700 Provider: Jorge WONG, 6 Medical Michael PO Box Center Salvador R, 1522, , [email or web address] Pablito Begum, 120, [facility] Conner [facility] [id number], [place], [place] [address], [id number] Conner, tel: , . [place], tel: [phone]. [id number] tel:[phone] Associates Conner Complete or unsp Mar-0 Salvador In Womens spontaneous 7-201 [place]. 700 Jorge WONG, without 6 Medical PO Box complication Center Taj, , Sameer Begum, [facility], [place], [id number], [place], [place] [id number] tel: , [place]. tel: [phone] Associates [facility]ner Threatened Mar-0 Salvador In Womens 3-201 [place]. 700 Jorge WONG, 6 Medical PO Box Center 152[place], Sameer Boyle, 120, Conner FABIAN, [id number], [place], [place] [id number] tel: , [place]. tel: [phone] Associates Conner Threatened Mar-0 Salvador Referring In Womens 3-201 [place]. 700 Provider: Health JUDITH, 6 Medical Svitlana Priest PO Box Center K, 700 1522, , [facility], 120, [place] Dr FABIAN, [facility] 120, [id number], CAREN, [facility] [id number] [place], tel: , . [phone]. [id number] tel: tel: [phone] Associates Conner Sep- Priest In Womens 9-201 Svitlana. Health JUDITH, 5 700 PO Box Medical 1522, [place] Dr Shy, [email or web address]] [place], 120, [id number], [facility] [place], tel: [phone] , . tel: [phone] Family History Family Member Diagnosis Age At [...] Unknown Payers Payer name Insurance type Covered green party ID Authorization(s) [facility] BL [id number] Social History Type Description Quantity Date Captured Alcohol Use Details No Caffeine Use Details Unknown Tobacco Use Status Unknown Smoking Status Never smoker Vital Signs Date / Height Weight BMI Pulse Blood Temperature Respiratory Body Head BMI Time: Rate Pressure Rate Surface Circumference percentile Area 111.90 19.2 120/2018 lbs 0 mm[Hg] 10:31 kg/m AM eter (2) Chief Complaint And [...]
--- OUTSIDE RECORDS SUMMARY | 2017-11-09 06:15 | External Medical Summary | Continuity of Care Document ---
:1990 Author Organization [facility] Address [address] [place], [place] [address] Phone Care Team Providers Name Role Phone [...] spontaneous without complication Threatened Procedures Procedure Date Office/outpatient visit[facility] [place] Test Name Date and Time Measure Units Reference Range Abnormal Flag Comments Unknown Advance Directives Directive Yes / No Effective Date File Name Unknown Encounters Encounter Practice Location Reason(s) Diagnoses Date Provider Care Team Description For Visit Members Office/outpat Associates [facility]ner Habitual Recurrent Lamine Referring ient In Womens aborter PG. -2016 [place]. Provider: [facility] [employer] [place], (chief lossPreg care 700 Michael mod [address], complaint) for patient w Medical Shy Laurent [place], recurrent preg Center Dr 700 [id number], loss, unsp Sameer 120, Medical [place] trimester Prieto, [place] tel:[phone] [place], Sameer 120, [id number], Conner . [place], tel:[phone]. [id number] tel:[phone] Matthew Prieto Recurrent Salvador Referring In Womens loss -2016 [place]. 700 Provider: Health JUDITH Medical Michael [address], Center Salvador Boyle, Shy [place], Sameer 120, [address] [id number], Conner [facility], [place] tel:[phone] [id number], Sameer 120, [address] [place]. Conner, tel:[phone] [place], 92[address] 869849400. tel:[phone] Matthew Prieto Complete or Jun-07 Salvador In Womens unsp -2016 [place]. 700 Health JUDITH, spontaneous Medical [address], Center , CAREN Begum, without Sameer 120, [id number], complication Conner [facility], tel:[phone], [address] [place]. tel:[phone] Matthew Prieto Threatened Mar-03 Salvador In Womens -2016 [place]. 700 Health JUDITH, Medical [address], Center Shy Boyle [place], Sameer 120, [id number], Conner [facility], tel:[phone], [address] [place]. tel:[phone] Matthew Prieto Threatened Jun-03 Salvador Referring In Womens -2016 [place]. 700 Provider: Health Wilbert WONG Priest [address], Center Martha Boyle, CAREN [place], Sameer 120, Medical [id number], Conner [place], Sameer 120, tel:[phone], Conner, [address] . [place], tel:[phone]. [id number] tel:[phone] Matthew Prieto Priest In Womens -2014 Svitl[place]. 700 Health JUDITH, Medical [address], Center Shy Boyle [place], Sameer 120, [id number], Conner CAREN, tel:[phone], [address] [place]. tel:[phone] Family History Family Member Diagnosis Age At [...] name Insurance type Covered libertarian ID Authorization(s) KANDISLISA MUNROE [id number] Social History Type Description Quantity Date Captured Alcohol Use Details No Caffeine Use Details No Tobacco Use Status Never smoked tobacco Smoking Status Never smoker Vital Signs Date / Height Weight BMI Pulse Blood Temperature Respiratory Body Head BMI Time: Rate Pressure Rate Surface Circumference percentile Area 64.00 110.80 19.0 79 116/75 -2017 in lbs 2 /min mm[Hg] 2:15 kg/m PM eter (2) Chief Complaint And Reason For Visit Most recent encounter only, dated '03/11/2017 14:15'. Habitual aborter PG. (chief complaint). Description: 26 wf Gr 4 p 1 SAB 2 early ob with cramping. HPI: LMP 02/07/17, 4.4GA, EDC 11/14/17. Reports some mild cramping. Brown spots 4-5 days ago. Positive PG test on 03/10. sl. nausea. MBT A+. Worried about the cramping and sl. spots related to hx of SABs. Reason For Referral Reason For Referral Unknown Plan Of Care Date Type Action Status Unknown. Date Type Problem Goal Intervention Status Start [...]
[2017-11-09 06:33] VITALS: BMI 27.0
[2017-11-09] MEDS: LR 1,000 ML IV PRN ×2 (06:58→08:10)
[2017-11-09] MEDS ORDERED: OXYTOCIN DRIP 30 UNIT/500 ML ML IV PRN (07:05)
[2017-11-09] MEDS ORDERED: ONDANSETRON 4 MG/2 ML INJECTION IVP PRN (08:48)
[2017-11-09] MEDS ORDERED: DiphenhydrAMINE 50 MG/ML INJECTION IVP PRN (08:48)
[2017-11-09] MEDS ORDERED: NALOXONE 0.4 MG/ML INJECTION IVP PRN (08:48)
[2017-11-09] MEDS ORDERED: ROPIVACAINE 1% 10MG/ML INJ 200 MG, SUFentanil 50 MCG in NS 100 ML EPI PRN (08:48)
--- NOTE | 2017-11-09 08:50 | Anesthesia Preoperative Report ---
Anesthesia Epidural/Spinal Rec - Date and Time Date: 11/09/17 Preoperative Diagnosis: Term induction Procedure: Labor Epidural Plan: Epidural - Vital Signs Vital Signs: Temperature 97.8 F 11/09/17 06:35 Pulse Rate 85 11/09/17 06:35 Respiratory Rate 16 11/09/17 06:35 Blood Pressure 126/83 11/09/17 06:35 /Para: P:1 - Medictaions & Allergies Inpatient Medications: Current Medications Acetaminophen (Tylenol) 500 - 1,000 mg PO Q4H PRN PRN Reason: Pain Al Hydroxide/Mg Hydroxide (Maalox Plus) 30 ml PO Q3H PRN PRN Reason: Indigestion Calcium Carbonate (Tums) 500 - 1,000 mg PO Q2H PRN PRN Reason: Indigestion Carboprost Tromethamine (Hemabate) 250 mcg IM O PRN PRN Reason: .Downtime Lactated Ringer's (Lactated Ringers) 1,000 mls @ 999 mls/hr IV .Q1H1M PRN Last Admin: 11/09/17 08:10 Dose: 999 mls/hr Dextrose/Lactated Ringer's (Dextrose 5%-Lactated Ringers) 1,000 mls @ 125 mls/ hr IV .Q8H PRN PRN Reason: Labor Last Admin: 11/09/17 06:59 Dose: 125 mls/hr Oxytocin (Pitocin Drip) 30 unit in 500 mls @ 2 mls/hr IV .Q24H PRN; Protocol PRN Reason: Induction/Augmentation Last Admin: 11/09/17 07:00 Dose: 2 mls/hr Lidocaine HCl (Xylocaine-Mpf 1% Vial) 0.2 mg ID O PRN PRN Reason: IV Start Methylergonovine Maleate (Methergine) 0.2 mg IM O PRN Misoprostol (Cytotec) 800 mcg CO ONCE PRN Sodium Chloride (Iv Flush) 10 - 80 ml IV PRN PRN PRN Reason: Flushing Allergies/Adverse Reactions: Allergies Allergy/AdvReac Type Severity Reaction Status Date / Time lactose Allergy Severe Hives Verified 11/09/17 06:41 amoxicillin Allergy Unknown Verified 11/09/17 06:41 - Home Medications Home Medications: Home Medications Medication Instructions Recorded Confirmed Type Pnv No.95/Ferrous Fum/Folic AC 1 each PO DAILY 10/21/17 11/09/17 History [ Tablet] - Medical History Respiratory: DENIES: Asthma, Bronchitis, Chronic Obstructive Pulmonary Disease (COPD), Dyspnea, Orthopnea, Pulmonary Embolism, Pneumonia, Upper Respiratory Infection, Pulmonary Edema, Sleep Apnea, Tuberculosis, Other Cardiovascular: DENIES: Abnormal EKG, Angina, Arrhythmia, Congestive Heart Failure, Coronary Artery Disease, Heart Murmur, Hypertension, Hypotension, High Cholesterol, Myocardial Infarction, Rheumatic Fever, Valvular Heart Disease, Other Gastrointestional: DENIES: Obstructive Bowel, Hepatitis, Cirrhosis, Nausea or Vomiting Present, Gastroesophageal Reflux Disease, Gastrointestinal Bleeding, Hiatal Hernia, Ulcer , Morbid Obesity, Other Neuro/Musculoskeletal: Denies: Back Problems, Cerebrovascular Accident, Depression, Headaches, Loss of Consciousness, Muscle Weakness, Neuromuscular Disorder, Paralysis, Paresthesia, Syncope, Seizures, Other Renal/Endocrine: DENIES: Diabetes Mellitus Type 1, Diabetes Mellitus Type 2, Renal Failure, Dialysis, Thyroid Disease, Weight Loss, Weight Gain, Other Other History: Reports: Now DENIES: Anesthesia Reactions - Surgical History Musculoskeletal Surgery/Tx: Reports: Joint Surgery (ankle injury- 2006) Reproductive Surgery/Treatment: DENIES: Section Anesthesia Reactions: None Hx Family Anesthesia Reaction: No History of Motion Sickness: No - Social History Smoking Status: Never smoker Substance Use Type: does not use Alcohol Intake Frequency: does not drink - Pertinent Findings Lab Data: CBC and BMP 11/09/17 06:40 - Physical Exam Respiratory Exam: lungs clear, bilateral breath sounds equal Cardiovascular Exam: regular rate and rhythm, no murmur - Airway Assessment Mallampati Score: I TMD: 3 Fingerbreadths Neck Extension: good Overall Assessment: no airway concerns - ASA ASA Score: 2 - Discussion Discussion: Discussed risks/options/alternatives of anesthesia and questions answered. Patient consents. Nursing pain assessment noted. Anesthesia Discussion: spouse Attestation Statement: Prior to the delivery of any anesthetic medication, I examined the patient, developed the plan, obtained the patient's consent and discussed the risk and benefits of the procedure with the patient/guardian.
[2017-11-09] MEDS ORDERED: DiphenhydrAMINE 25 MG CAPSULE PO PRN (12:41)
[2017-11-09] MEDS ORDERED: HYDROCORTISONE 2.5% CREAM 30gm RECTALLY PRN (12:41)
[2017-11-09] MEDS: OXYTOCIN DRIP 30 UNIT/500 ML ML IV SCH ×2 (13:57→19:47)
[2017-11-09] MEDS: IBUPROFEN 800 MG TABLET PO PRN ×2 (14:29→22:07)
--- NOTE | 2017-11-09 15:18 | Labor and Delivery Note ---
DATE OF DELIVERY: 11/09/2017 DIAGNOSES 1. 26-year-old white female G4, P1 at 39.2 weeks gestational age. 2. Pitocin induction of labor for logistics. 3. Epidural anesthesia. 4. Spontaneous vaginal delivery. 5. OP presentation. 6. Female infant, Apgars, 3465 grams (Ev Hayes). 7. Partial third-degree laceration - repaired. 8. Meconium. DESCRIPTION This is a patient of mine with a logistics induction today. She started at 2.5 cm. Pitocin reached a maximum of 20 milliunits a minute. It was later turned down to 16 and then to 10 after AROM. She got an epidural. She made it to complete dilation and we began pushing. She pushed for about an hour and 20 minutes. delivered OP presentation. There was meconium and so the was DeLee suctioned on the perineum. Cord drained for a minute and a half and then was doubly clamped and cut. The infant's father cut the cord. initially went on the mother's abdomen. Placenta delivered spontaneously. There was a partial third-degree laceration. There was also left and right sulcus lacerations that were repaired. 2-0 Vicryl was used to reinforce the rectal sphincter capsule and then repair the remainder of the laceration. 3-0 chromic was used to repair the sulcus laceration and put some interrupted's on the skin edges externally. EBL was 300 mL. GBS is negative. Rubella is immune. MTDD
--- NOTE | 2017-11-09 18:11 | Progress Note ---
OB PP Progress Note Free Text - Date Date: 11/09/17 - Progress Note Progress Note: no c/o doing well.
[2017-11-09] MEDS: HYDROCODONE/APAP 5mg/325mg TABLET PO PRN (22:09)
[2017-11-10] MEDS: HYDROCODONE/APAP 5mg/325mg TABLET PO PRN ×2 (04:31→08:40)
[2017-11-10] MEDS: IBUPROFEN 800 MG TABLET PO PRN (08:40)
[2017-11-10] MEDS ORDERED: DOCUSATE CALCIUM 240 MG CAPSULE PO SCH (09:00)
--- NOTE | 2017-11-10 10:56 | Progress Note ---
OB PP Progress Note Free Text - Date Date: 11/10/17 - Progress Note Progress Note: vss af hgb drop noted pt asleep so I will return later
[2017-11-10 14:33] VITALS: BP 125/82; PULSE 75; RESP 18; TEMP 97.4; O2SAT 97
== END 2017-11-10 14:43 | disposition home or self-care (01) | DRG 775 ==
LOC: MC 06:08
PROVIDERS: ADMIT Obstetrics & Gynecology; ATTEND Obstetrics & Gynecology